=== PATIENT | male | born 1955 | race Caucasian/White ===

== ENCOUNTER 2018-02-19 21:01 | Observation (INO) ==
[2018-02-19] MEDS ORDERED: MethylPREDNISolone Sod Succinate Inj 125 MG/2 ML Vial IV.PUSH ONE (21:11)
[2018-02-19 21:52] LABS: Baso # (Auto) 0.1 th/mm3 (0.0-0.2); Baso % (Auto) 0.5 % (0.0-2.0); Eos # (Auto) 0.4 th/mm3 (0.0-0.4); Eos % (Auto) 2.5 % (0.0-4.0); Hematocrit 36.4 % (39.0-51.0); Hemoglobin 12.3 gm/dL (13.0-17.0); Mean Corpuscular HGB Conc 33.9 % (32.0-36.0); Mean Corpuscular Hemoglobin 30.3 pg (27.0-34.0); Mean Corpuscular Volume 89.5 fL (80.0-100.0); Mono # (Auto) 1.5 th/mm3 (0.0-0.9); Mono % (Auto) 9.8 % (0.0-8.0); Neut # (Auto) 11.7 th/mm3 (1.8-7.7); Neut % (Auto) 74.2 % (16.0-70.0); Platelet Count 280 th/mm3 (150-450); Red Blood Count 4.07 mil/mm3 (4.50-5.90); Red Cell Distribution Width 14.5 % (11.6-17.2); White Blood Count 15.7 th/mm3 (4.0-11.0)
--- NOTE | 2018-02-19 21:52 | XR ---
EXAM DATE: 02/19/2018 9:37 PM EST AGE/SEX: 62 years / Male INDICATIONS: Shortness of breath. CLINICAL DATA: This is the patient's initial encounter. Patient reports that signs and symptoms have been present for 4 - 6 days and indicates a pain score of 0/10. MEDICAL/SURGICAL HISTORY: Chronic obstructive pulmonary disease. Smoker. Umbilical hernia repa ir. COMPARISON: No prior exams available for comparison. FINDINGS: A single AP view of the chest demonstrates the lungs to be symmetrically aerated without evidence of mass, infiltrate or effusion. The cardiomediastinal contours are mildly prominent. Osseous structure s are intact. CONCLUSION: Mild cardiomegaly. Mild basilar atelectasis. Electronically signed by: Alonzo Thayer MD 02/19/2018 9:51 PM EST
--- NOTE | 2018-02-19 21:56 | ED ---
HPI General Chief Complaint: Respiratory Symptoms Stated Complaint: sob Time Seen by Provider: 02/19/18 21:11 Source: patient Mode of arrival: wheelchair Limitations: no limitations History of Present Illness HPI Narrative: 62-year-old male the presents to the ED for evaluation of shortness of breath. Per patient he has had shortness of breath for the past 3 days. He denies any urinary or bowel movement issues. Per patient he has no chest pain. Per patient he has a lot of difficulty just ambulating without feeling short of breath. Per patient he had a sleep test on and ever since has been having symptoms. Per patient has been having cough and congestion as well that has progressively gotten worse. Denies any fevers chills or sweats. States that he has no chest pain but does feel that he is having a hard time taking a deep breath. He has a history of COPD and uses oxygen at home. He also has a history of asthma and per patient he continues to smoke. He chronically uses 2 L of oxygen and he himself increase his oxygen to 3 L today to help with his breathing as he was having a lot of difficulty getting his breath. He denies any history of heart disease but does have a history of anxiety and states that he has been worked up for heart in the past with negative results. Denies any other medical issues at this time. Patient states that the symptoms worsen which is what prompted evaluation. Per patient he cannot lay down flat without having significant shortness of breath. He denies ever been told he has CHF. Related Data Home Medications Medication Instructions Recorded Confirmed albuterol sulfate [Ventolin HFA] 2 puff INHALATION Q6H PRN 02/19/18 02/19/18 fluticasone-salmeterol [Advair 1 puff INHALATION BID 02/19/18 02/19/18 Diskus] hydrochlorothiazide 25 mg PO DAILY 02/19/18 02/19/18 lisinopril 20 mg PO DAILY 02/19/18 02/19/18 pravastatin 20 mg PO DAILY 02/19/18 02/19/18 Allergies Allergy/AdvReac Type Severity Reaction Status Date / Time No Known Allergies Allergy Uncoded 07/01/16 15:30 Review of Systems ROS: all other systems reviewed are negative PMFSH Social History Social History Substance History: No History of Abuse Smoking Status: Current every day smoker Tobacco Type: Cigarettes How Often Do You Have a Drink Containing Alcohol: Monthly or less Recent Travel in [facility] within the Last 8 Weeks: No Recent Out of Country Travel within the Last 8 Weeks: No Immunization History Tetanus Immunization: Unsure Exam Narrative Exam Narrative: GENERAL: Well-appearing but morbidly obese SKIN: Focused skin assessment warm/dry. HEAD: Atraumatic. Normocephalic. EYES: Pupils equal and round. No scleral icterus. No injection or drainage. ENT: No nasal bleeding or discharge. Mucous membranes pink and moist. NECK: Trachea midline. No JVD. CARDIOVASCULAR: Regular rate and rhythm. No murmur appreciated. RESPIRATORY: No accessory muscle use. Mild wheezing heard in the lung leon.. Breath sounds equal bilaterally. GASTROINTESTINAL: Abdomen soft, non-tender, nondistended. Hepatic and splenic margins not palpable. MUSCULOSKELETAL: No obvious deformities. No clubbing. No cyanosis. No edema. Full range of motion of the upper and lower extremities bilaterally. 2+ pulses bilaterally. NEUROLOGICAL: Awake and alert. No obvious cranial nerve deficits. Motor grossly within normal limits. Normal speech. PSYCHIATRIC: Appropriate mood and affect; insight and judgment normal. Course Initial Documented Vital Signs Temperature 99.9 F H 02/19/18 21:09 Pulse Rate 100 H 02/19/18 21:09 Respiratory Rate 26 H 02/19/18 21:09 Pulse Oximetry 94 L 02/19/18 21:09 Last Documented Vital Signs Temperature 99.9 F H 02/19/18 21:09 Pulse Rate 98 H 02/19/18 22:42 Respiratory Rate 22 02/19/18 22:42 Blood Pressure 118/68 02/19/18 22:42 Pulse Oximetry 96 02/19/18 22:42 Medical Decision Making JOSEPH Attestation JOSEPH supervised visit: Yes Attestation: ,I, Dr. Figueroa, have reviewed the advance practice practitioner's documentation and am in agreement, met with the patient face to face, made the diagnosis, and the medical decision making was done by me. The patient was initially evaluated by Ramez Ag. Please see their complete history and physical. *My assessment and Findings: The patient presents with a history of reportedly not feeling well over the last few days. He reports that his symptoms began after he underwent a sleep study and had to wear a CPAP. The patient reports that the next day he developed cough and congestion. The patient is on 2 L nasal cannula O2 continuously related to COPD. The patient reports that he has had a cough that is been increasingly productive of yellow sputum. He denies having any known fevers. During the course of the patient's emergency department visit, the patient's history, examination, and differential diagnosis were reviewed with the patient. The patient was placed on a phototypesetting equipment monitor with oximetry and frequent blood pressure monitoring. The patient had IV access obtained and blood work sent for analysis. The patient was initially provided DuoNeb's x3, Solu-Medrol 100mg IV, Azithromycin 500mg IV. The patient's diagnostic studies were reviewed and remarkable for a chest x-ray that showed basilar infiltrates bilaterally according to the reading radiologistChemistry is remarkable for a CO2 of 32.6, GFR of 66, glucose 115, AST 13, initial set of cardiac enzymes are within normal limits, BNP within normal limits, hemoglobin is 12.3, white count is elevated at 15.7 with a left shift, neutrophil predominance of 74.2, PT PTT within normal limits, d-dimer is 0.25 decreasing the likelihood of pulmonary embolism in this patient. The ABG reveals a pH of 7.41, PCO2 49, bicarb 31, PO2 68, carboxyhemoglobin 2.2 in a patient on 2 L nasal cannula O2. The patient's results were discussed with the patient, including the plan of care. I explained that further testing and/ or monitoring is indicated based on the patient's history, examination, and/ or laboratory findings. Therefore, I recommended admission for additional evaluation. The patient expressed understanding and was agreeable with this plan. The patient was admitted to the hospital in guarded condition and sent to a bed under the care of the resident's service. MDM Narrative Medical decision making narrative: 62-year-old male the presents to the ED for evaluation of shortness of breath. Patient was properly examined and was found to have signs and symptoms consistent with shortness of breath. Labs and imaging ordered. My attending Dr. Figueroa evaluate the patient herself. Patient was given breathing treatments and Solu-Medrol. Labs and imaging showed no sign of acute disease. Patient still somewhat short of breath and symptomatic. This time her condition is for admission for further evaluation and treatment. Case discussed with my attending who agrees with this. Patient agrees with admission. Case discussed with residents agreed admission to their service. Medical Screen Exam Complete: Yes Emergency Medical Condition: Yes Differential Diagnosis Differential Diagnosis: Respiratory distress versus respiratory failure versus ACS versus CHF versus pneumonia versus COPD exacerbation Medical Records Medical records reviewed: Yes I reviewed the patient's medical records. Lab Data Lab results reviewed: Yes I reviewed the patient's lab results. Result diagrams: 02/19/18 21:15 02/19/18 21:15 Lab Results 02/19/18 02/19/18 02/19/18 Range/Units 21:15 21:15 21:15 WBC 15.7 H (4.0-11.0) th/mm3 RBC 4.07 L (4.50-5.90) mil/mm3 Hgb 12.3 L (13.0-17.0) gm/dL Hct 36.4 L (39.0-51.0) % MCV 89.5 (80.0-100.0) fL MCH 30.3 (27.0-34.0) pg MCHC 33.9 (32.0-36.0) % RDW 14.5 (11.6-17.2) % Plt Count 280 (150-450) th/mm3 MPV 8.0 (7.0-11.0) fL Neut % (Auto) 74.2 H (16.0-70.0) % Lymph % (Auto) 13.0 (9.0-44.0) % Mar[place]osa % (Auto) 9.8 H (0.0-8.0) % Eos % (Auto) 2.5 (0.0-4.0) % Baso % (Auto) 0.5 (0.0-2.0) % Neut # (Auto) 11.7 H (1.8-7.7) th/mm3 Lymph # (Auto) 2.0 (1.0-4.8) th/mm3 Mar[place] # (Auto) 1.5 H (0.0-0.9) th/mm3 Eos # (Auto) 0.4 (0.0-0.4) th/mm3 Baso # (Auto) 0.1 (0.0-0.2) th/mm3 WBC Differential . Differential Comment Auto diff final PT 10.1 (9.8-11.6) sec INR 1.0 Ratio APTT 32.1 H (23.4-31.7) sec D-Dimer Quant (PE/DVT) 0.25 (0.00-0.50) mg/L FEU Puncture Site Patient Temperature O2 Saturation (90-100) % ABG pH (7.380-7.420) ABG pCO2 (38-42) mmHg ABG pO2 (61-120) mmHg ABG HCO3 (22-26) mmol/L ABG O2 Content (12.0-20.0) Vol % ABG Base Excess (-2-2) mmol/L ABG Methemoglobin (0-2) % Ash Test Hemoglobin (12.0-16.0) G/DL Carboxyhemoglobin (0-4) % O2 Delivery Device Liter Flow L/M Critical Value Sodium 143 (136-145) meq/L Potassium 3.8 (3.5-5.1) meq/L Chloride 104 (98-107) meq/L Carbon Dioxide 32.6 H (21.0-32.0) meq/L Anion Gap 6 (5-15) meq/L BUN 12 (7-18) mg/dL Creatinine 1.13 (0.60-1.30) mg/dL Estimated GFR 66 L (>89) mL/min Random Glucose 115 H (74-106) mg/dL Calcium 8.3 L (8.5-10.1) mg/dL Magnesium 1.9 (1.5-2.5) mg/dL Total Bilirubin 0.6 (0.2-1.0) mg/dL AST 13 L (15-37) U/L ALT 23 (12-78) U/L Alkaline Phosphatase 66 (45-117) U/L Total Creatine Kinase 89 (39-308) U/L Troponin I Less than 0.02 L (0.02-0.05) ng/mL B-Natriuretic Peptide (0-100) pg/mL Total Protein 7.9 (6.4-8.2) g/dL Albumin 4.0 (3.4-5.0) g/dL 02/19/18 02/19/18 Range/Units 21:15 22:17 WBC (4.0-11.0) th/mm3 RBC (4.50-5.90) mil/mm3 Hgb (13.0-17.0) gm/dL Hct (39.0-51.0) % MCV (80.0-100.0) fL MCH (27.0-34.0) pg MCHC (32.0-36.0) % RDW (11.6-17.2) % Plt Count (150-450) th/mm3 MPV (7.0-11.0) fL Neut % (Auto) (16.0-70.0) % Lymph % (Auto) (9.0-44.0) % [place] % (Auto) (0.0-8.0) % Eos % (Auto) (0.0-4.0) % Baso % (Auto) (0.0-2.0) % Neut # (Auto) (1.8-7.7) th/mm3 Lymph # (Auto) (1.0-4.8) th/mm3 [place] # (Auto) (0.0-0.9) th/mm3 Eos # (Auto) (0.0-0.4) th/mm3 Baso # (Auto) (0.0-0.2) th/mm3 WBC Differential Differential Comment PT (9.8-11.6) sec INR Ratio APTT (23.4-31.7) sec D-Dimer Quant (PE/DVT) (0.00-0.50) mg/L FEU Puncture Site Right radial Patient Temperature 98.6 O2 Saturation 91 (90-100) % ABG pH 7.41 (7.380-7.420) ABG pCO2 49 H (38-42) mmHg ABG pO2 68 (61-120) mmHg ABG HCO3 31 H (22-26) mmol/L ABG O2 Content 14.9 (12.0-20.0) Vol % ABG Base Excess 6.3 H (-2-2) mmol/L ABG Methemoglobin 0.8 (0-2) % Ash Test Present Hemoglobin 11.5 L (12.0-16.0) G/DL Carboxyhemoglobin 2.2 (0-4) % O2 Delivery Device Nasal cannula Liter Flow 2.00 L/M Critical Value No Sodium (136-145) meq/L Potassium (3.5-5.1) meq/L Chloride (98-107) meq/L Carbon Dioxide (21.0-32.0) meq/L Anion Gap (5-15) meq/L BUN (7-18) mg/dL Creatinine (0.60-1.30) mg/dL Estimated GFR (>89) mL/min Random Glucose (74-106) mg/dL Calcium (8.5-10.1) mg/dL Magnesium (1.5-2.5) mg/dL Total Bilirubin (0.2-1.0) mg/dL AST (15-37) U/L ALT (12-78) U/L Alkaline Phosphatase (45-117) U/L Total Creatine Kinase (39-308) U/L Troponin I (0.02-0.05) ng/mL B-Natriuretic Peptide 55 (0-100) pg/mL Total Protein (6.4-8.2) g/dL Albumin (3.4-5.0) g/dL Imaging Data Attestation: I personally reviewed and interpreted this imaging study as follows : Radiologist's impression: Chest X-Ray 02/19/18 21:11 CONCLUSION: Mild cardiomegaly. Mild basilar atelectasis. ECG Data Attestation: I personally reviewed and interpreted this ECG as follows: Interpretation: EKG shows sinus rhythm with no sign of acute ischemia. Read by me and attending. Discharge Plan Discharge Disposition Patient Disposition: 30 Still Patient Discharge Details Diagnosis: Acute exacerbation of chronic obstructive pulmonary disease (COPD) Physicians Team ED Provider: Luz Figueroa ED Midlevel Provider: Ancelmo Jackson Primary Care Provider: Carlos Gomez Attending Provider: Breezy Mathews Status ED Status: Admitted Observation Patient
[2018-02-19 22:15] LABS: Activated Partial Thrombo Time 32.1 sec (23.4-31.7); Prothrombin Time 10.1 sec (9.8-11.6)
[2018-02-19 22:17] LABS: Alanine Aminotransferase 23 U/L (12-78); Anion Gap 6 meq/L (5-15); Aspartate Aminotransferase 13 U/L (15-37); Blood Urea Nitrogen 12 mg/dL (7-18); Calcium 8.3 mg/dL (8.5-10.1); Carbon Dioxide 32.6 meq/L (21.0-32.0); Chloride 104 meq/L (98-107); Glomerular Filtration Rate 66 mL/min (>89); Glucose,Random 115 mg/dL (74-106); Magnesium 1.9 mg/dL (1.5-2.5); Potassium 3.8 meq/L (3.5-5.1); Sodium 143 meq/L (136-145)
[2018-02-19 22:21] LABS: Alkaline Phosphatase 66 U/L (45-117); D-Dimer 0.25 mg/L FEU (0.00-0.50); Total Protein 7.9 g/dL (6.4-8.2)
[2018-02-19 22:24] LABS: Creatine Kinase 89 U/L (39-308)
[2018-02-19 22:26] LABS: ABG Base Excess 6.3 mmol/L (-2-2); ABG PCO2 49 mmHg (38-42); ABG PO2 68 mmHg (61-120)
[2018-02-19] MEDS ORDERED: Azithromycin Inj 500 MG in Sodium Chlor 0.9% Inj 250 ML IV.SIG ONE (22:51)
--- NOTE | 2018-02-19 23:20 | P.HPFP ---
History of Present Illness Primary Care Physician: Carlos Gomez MD <Breezy Mathews - 02/20/18 13:58> Carlos Gomez MD <Anastasiia Villavicencio - 02/19/18 23:20> Chief Complaint: shortness of breath <Anastasiia Villavicencio - 02/20/18 04:21> History of Present Illness: Patient is a 62-year-old old male with significant past medical history of hypertension and COPD presenting to the ED due to worsening shortness of breath. On Tuesday patient began feeling sick with cough and increased sputum production initially greenish brown than greenish yellow. At home patient is on 2 L nasal cannula and O2 saturations ranged from 92-95% even while ambulating. However yesterday he noted O2 saturations to be 87% and only able to walk about 15 feet before becoming short of breath and fatigued. He increase his home oxygen to 3 L however this did not provide any symptomatic relief as he still felt like he "just could not breathe". He took albuterol inhaler and Advair medication with only minimal relief in symptoms. Endorses chills, arms warm, dizziness, low appetite since Tuesday and frontal ROSEN x 2 days slightly improved. Endorses midsternal chest tightness for the past 3 days, nonradiating, stable. Denies nausea, vomiting, fever, confusion, dysuria or abdominal pain. He was brought to the ED by his friend. During exam he was able to speak in full sentences. He normally sleeps on his right side propped up with 2 pillows. Of note patient reports that he had sleep study done yesterday due to diagnosis of sleep apnea for CPAP fitting he was told he quit breathing 27 times in 1 hour however patient does not have a CPAP machine at home yet. Past medical history: COPD Obesity Hyperlipidemia Hypertension Past surgical history: Appendectomy at 6 years of age Umbilical hernia repair in 2013 Shx: smokin cig a day for 45 yrs. alcohol, rarely no illicit drug use Family history: Father colon cancer Mother alcohol abuse <Anastasiia Villavicencio - 02/20/18 05:20> - Diagnosis (1) Acute exacerbation of chronic obstructive pulmonary disease (COPD) (2) Hypertension (3) Nutrition, metabolism, and development symptoms <Breezy Mathews - 02/20/18 13:58> (1) Acute exacerbation of chronic obstructive pulmonary disease (COPD) (2) Hypertension (3) Nutrition, metabolism, and development symptoms <Anastasiia Villavicencio Ilda 02/20/18 04:44> Review of Systems All other systems reviewed negative except as stated in HPI <SaudAnastasiia 02/20/18 05:20> PMFSH - History History Provided By: Patient <Anastasiia Villavicencio Ilda 02/19/18 23:20> - Medical History Medical History: Medical History (Last Updated 02/20/18 @ 00:12 by Caryl Olsen) COPD (chronic obstructive pulmonary disease) [place] (hard of hearing) HTN (hypertension) Sleep apnea Umbilical hernia <Breezy Mathews - 02/20/18 13:58> Medical History (Last Updated 02/20/18 @ 00:12 by Caryl Olsen) COPD (chronic obstructive pulmonary disease) [place] (hard of hearing) HTN (hypertension) Sleep apnea Umbilical hernia <GalloAnastasiia haque 02/20/18 04:21> - Tobacco History Tobacco Use In Past 30 Days: Yes <Anastasiia Villavicencio 02/19/18 23:20> Smoking Status: Current every day smoker <Jose FAnastasiia araiza 02/19/18 23:20> Tobacco Type: Cigarettes <Jose FAnastasiia araiza 02/19/18 23:20> - Alcohol History How Often Do You Have a Drink Containing Alcohol: Monthly or less <GalloAnastasiia haque 02/19/18 23:20> - Substance Use History Substance History: No History of Abuse <Anastasiia Villavicencio 02/19/18 23:20> - Travel History Recent Travel in the [facility] Within the Last 8 Weeks: No <Anastasiia Villavicencio 23:20> Recent Travel Out of the Country Within the Last 8 Weeks: No <Anastasiia Villavicencio 02/19/18 23:20> - Immunization History Tetanus Immunization: Unsure <Anastasiia Villavicencio 02/19/18 23:20> Medications and Allergies Allergies Allergy/AdvReac Type Severity Reaction Status Date / Time No Known Allergies Allergy Uncoded 07/01/16 15:30 <Breezy Mathews - 02/20/18 13:58> Home Medications Medication Instructions Recorded Confirmed Type fluticasone-salmeterol [Advair 1 puff INHALATION BID 02/19/18 02/19/18 History Diskus] hydrochlorothiazide 25 mg PO DAILY 02/19/18 02/19/18 History lisinopril 20 mg PO DAILY 02/19/18 02/19/18 History pravastatin 20 mg PO DAILY 02/19/18 02/19/18 History <Breezy Mathews L - 02/20/18 13:58> Active Medications: Active Medications Azithromycin 500 mg/ Sodium (Chloride) 250 mls @ 250 mls/hr IV.SIG ONCE ONE Stop: 02/19/18 23:50 Last Admin: 02/19/18 23:04 Dose: 250 mls/hr <Anastasiia Villavicencio D - 02/19/18 23:20> Exam Vital signs: Vital Signs 02/19/18 21:09 02/19/18 21:14 02/19/18 21:15 Temperature 99.9 F H Pulse Rate 100 H Respiratory Rate 26 H Blood Pressure 151/85 H Pulse Oximetry 94 L 96 02/19/18 21:30 02/19/18 21:34 02/19/18 21:45 Temperature Pulse Rate 131 H 133 H Respiratory Rate 25 H 23 Blood Pressure Pulse Oximetry 96 02/19/18 22:00 02/19/18 22:42 02/20/18 00:05 Temperature Pulse Rate 135 H 98 H Respiratory Rate 23 22 Blood Pressure 118/68 Pulse Oximetry 96 96 02/20/18 00:13 02/20/18 00:55 02/20/18 02:27 Temperature Pulse Rate 95 H 88 100 H Respiratory Rate 21 18 Blood Pressure 116/67 Pulse Oximetry 97 02/20/18 04:00 02/20/18 04:36 02/20/18 08:00 Temperature 98.3 F 97.7 F Pulse Rate 97 H 95 H 75 Respiratory Rate 18 19 20 Blood Pressure 106/60 113/56 L Pulse Oximetry 95 99 02/20/18 09:00 02/20/18 10:06 Temperature Pulse Rate 91 H Respiratory Rate Blood Pressure Pulse Oximetry 100 Intake & Output 02/19/18 02/20/18 02/20/18 18:59 06:59 18:59 Intake Total 610 / 610 Output Total 600 / 600 Balance Weight 112.037 kg Intake: IV 250 / 250 Azithromycin Inj 500 MG In NS 250 / 250 Inj 250 ML @ 250 mls/hr IV.SIG ONCE ONE Rx#:[id number] Oral 360 / 360 Output: Urine 600 / 600 Other: # Voids 2 Date of Last Bowel Movement 02/18/18 02/18/18 Weight On Admission 112.037 kg <Breezy Mathews - 02/20/18 13:58> Vital Signs 02/19/18 21:09 02/19/18 21:14 02/19/18 21:15 Temperature 99.9 F H Pulse Rate 100 H Respiratory Rate 26 H Blood Pressure 151/85 H Pulse Oximetry 94 L 96 02/19/18 21:30 02/19/18 21:34 02/19/18 22:42 Temperature Pulse Rate 131 H 98 H Respiratory Rate 25 H 22 Blood Pressure 118/68 Pulse Oximetry 96 96 Intake & Output 02/19/18 02/19/18 02/20/18 06:59 18:59 06:59 Weight 114.759 kg <Anastasiia Villavicencio D - 02/19/18 23:20> - Constitutional no acute distress <Anastasiia Villavicencio D - 02/20/18 05:20> - Routine HEENT Exam Head: Present: normocephalic <Anastasiia Villavicencio D - 02/20/18 05:20> Eye: Present: EOMI, PERRL <Anastasiia Villavicencio D - 02/20/18 05:20> ENT: Present: mucous membranes moist, oropharynx clear <Anastasiia Villavicencio D - 03/28 05:20> - Routine Neck Exam Present: supple, full ROM. Absent: JVD, lymphadenopathy <Anastasiia Villavicencio D - 05:20> - Routine Chest/Breast/Axilla Exam Chest wall: Absent: tenderness <Anastasiia Villavicencio D - 02/20/18 05:20> - Routine Respiratory Exam Present: CTA bilaterally. Absent: accessory muscle use <Anastasiia Villavicencio D - 03/28 05:20> - Routine Cardiovascular Exam Present: RRR, S1, S2. Absent: murmur, gallop, rubs <Anastasiia Villavicencio - 05:20> - Routine Abdominal Exam Present: soft, normoactive bowel sounds. Absent: tenderness, rebound, guarding <Anastasiia Villavicencio D - 02/20/18 05:20> - Routine Extremities Exam Present: pulses intact. Absent: edema, calf tenderness <Anastasiia Villavicencio - 03/28 05:20> - Routine Skin Exam Present: intact <Anastasiia Villavicencio D - 02/20/18 05:20> - Routine Neurological Exam Present: oriented X3 <Anastasiia Villavicencio - 02/20/18 05:20> Results - Labs Result diagrams: 02/20/18 03:58 02/20/18 03:58 <Breezy Mathews L - 02/20/18 13:58> Abnormal lab results 02/19/18 02/19/18 02/19/18 Range/Units 21:15 21:15 21:15 WBC 15.7 H (4.0-11.0) th/mm3 RBC 4.07 L (4.50-5.90) mil/mm3 Hgb 12.3 L (13.0-17.0) gm/dL Hct 36.4 L (39.0-51.0) % Neut % (Auto) 74.2 H (16.0-70.0) % Lymph % (Auto) (9.0-44.0) % [place] % (Auto) 9.8 H (0.0-8.0) % Neut # (Auto) 11.7 H (1.8-7.7) th/mm3 Lymph # (Auto) (1.0-4.8) th/mm3 [place] # (Auto) 1.5 H (0.0-0.9) th/mm3 APTT 32.1 H (23.4-31.7) sec ABG pCO2 (38-42) mmHg ABG HCO3 (22-26) mmol/L ABG Base Excess (-2-2) mmol/L Hemoglobin (12.0-16.0) G/DL Carbon Dioxide 32.6 H (21.0-32.0) meq/L Estimated GFR 66 L (>89) mL/min Random Glucose 115 H (74-106) mg/dL Calcium 8.3 L (8.5-10.1) mg/dL AST 13 L (15-37) U/L Troponin I Less than 0.02 L (0.02-0.05) ng/mL Urine Protein (Neg-Trace) mg/dL Urine Ketones (Negative) mg/dL Urine Urobilinogen (Less than 2) mg/dL Urine Mucus (Occasional) /lpf 02/19/18 02/20/18 02/20/18 Range/Units 22:17 02:06 03:58 WBC 12.0 H (4.0-11.0) th/mm3 RBC 3.61 L (4.50-5.90) mil/mm3 Hgb 11.1 L (13.0-17.0) gm/dL Hct 32.9 L (39.0-51.0) % Neut % (Auto) 94.8 H (16.0-70.0) % Lymph % (Auto) 3.5 L (9.0-44.0) % [place] % (Auto) (0.0-8.0) % Neut # (Auto) 11.4 H (1.8-7.7) th/mm3 Lymph # (Auto) 0.4 L (1.0-4.8) th/mm3 [place] # (Auto) (0.0-0.9) th/mm3 APTT (23.4-31.7) sec ABG pCO2 49 H (38-42) mmHg ABG HCO3 31 H (22-26) mmol/L ABG Base Excess 6.3 H (-2-2) mmol/L Hemoglobin 11.5 L (12.0-16.0) G/DL Carbon Dioxide (21.0-32.0) meq/L Estimated GFR (>89) mL/min Random Glucose (74-106) mg/dL Calcium (8.5-10.1) mg/dL AST (15-37) U/L Troponin I (0.02-0.05) ng/mL Urine Protein 30 H (Neg-Trace) mg/dL Urine Ketones Trace H (Negative) mg/dL Urine Urobilinogen 2.0 H (Less than 2) mg/dL Urine Mucus Few H (Occasional) /lpf 02/20/18 Range/Units 03:58 WBC (4.0-11.0) th/mm3 RBC (4.50-5.90) mil/mm3 Hgb (13.0-17.0) gm/dL Hct (39.0-51.0) % Neut % (Auto) (16.0-70.0) % Lymph % (Auto) (9.0-44.0) % [place] % (Auto) (0.0-8.0) % Neut # (Auto) (1.8-7.7) th/mm3 Lymph # (Auto) (1.0-4.8) th/mm3 [place] # (Auto) (0.0-0.9) th/mm3 APTT (23.4-31.7) sec ABG pCO2 (38-42) mmHg ABG HCO3 (22-26) mmol/L ABG Base Excess (-2-2) mmol/L Hemoglobin (12.0-16.0) G/DL Carbon Dioxide (21.0-32.0) meq/L Estimated GFR 58 L (>89) mL/min Random Glucose 298 H D (74-106) mg/dL Calcium 8.1 L (8.5-10.1) mg/dL AST 12 L (15-37) U/L Troponin I Less than 0.02 L (0.02-0.05) ng/mL Urine Protein (Neg-Trace) mg/dL Urine Ketones (Negative) mg/dL Urine Urobilinogen (Less than 2) mg/dL Urine Mucus (Occasional) /lpf Short CBC 02/19/18 02/20/18 Range/Units 21:15 03:58 WBC 15.7 H 12.0 H (4.0-11.0) th/mm3 Hgb 12.3 L 11.1 L (13.0-17.0) gm/dL Hct 36.4 L 32.9 L (39.0-51.0) % Plt Count 280 254 (150-450) th/mm3 BMP 02/19/18 02/20/18 21:15 03:58 Sodium 143 141 Potassium 3.8 3.9 Chloride 104 103 Carbon Dioxide 32.6 H 30.3 BUN 12 13 Creatinine 1.13 1.25 Calcium 8.3 L 8.1 L Cardiac Enzymes 02/19/18 02/20/18 Range/Units 21:15 03:58 Total Creatine Kinase 89 (39-308) U/L Troponin I Less than 0.02 L Less than 0.02 L (0.02-0.05) ng/mL Liver Function 02/19/18 02/20/18 Range/Units 21:15 03:58 Total Bilirubin 0.6 0.6 (0.2-1.0) mg/dL AST 13 L 12 L (15-37) U/L ALT 23 20 (12-78) U/L Alkaline Phosphatase 66 57 (45-117) U/L Albumin 4.0 3.4 D (3.4-5.0) g/dL Urine 02/20/18 Range/Units 02:06 Urine Color Yellow (Yellw/Straw) Urine Clarity Clear (Clear) Urine pH 5.0 (5.0-8.5) Ur Specific [place] 1.024 (1.002-1.035) Urine Protein 30 H (Neg-Trace) mg/dL Urine Glucose (UA) Negative (Negative) mg/dL <YoungBreezy L - 02/20/18 13:58> Abnormal lab results 02/19/18 02/19/18 02/19/18 Range/Units 21:15 21:15 21:15 WBC 15.7 H (4.0-11.0) th/mm3 RBC 4.07 L (4.50-5.90) mil/mm3 Hgb 12.3 L (13.0-17.0) gm/dL Hct 36.4 L (39.0-51.0) % Neut % (Auto) 74.2 H (16.0-70.0) % [place] % (Auto) 9.8 H (0.0-8.0) % Neut # (Auto) 11.7 H (1.8-7.7) th/mm3 [place] # (Auto) 1.5 H (0.0-0.9) th/mm3 APTT 32.1 H (23.4-31.7) sec ABG pCO2 (38-42) mmHg ABG HCO3 (22-26) mmol/L ABG Base Excess (-2-2) mmol/L Hemoglobin (12.0-16.0) G/DL Carbon Dioxide 32.6 H (21.0-32.0) meq/L Estimated GFR 66 L (>89) mL/min Random Glucose 115 H (74-106) mg/dL Calcium 8.3 L (8.5-10.1) mg/dL AST 13 L (15-37) U/L Troponin I Less than 0.02 L (0.02-0.05) ng/mL 02/19/18 Range/Units 22:17 WBC (4.0-11.0) th/mm3 RBC (4.50-5.90) mil/mm3 Hgb (13.0-17.0) gm/dL Hct (39.0-51.0) % Neut % (Auto) (16.0-70.0) % [place] % (Auto) (0.0-8.0) % Neut # (Auto) (1.8-7.7) th/mm3 [place] # (Auto) (0.0-0.9) th/mm3 APTT (23.4-31.7) sec ABG pCO2 49 H (38-42) mmHg ABG HCO3 31 H (22-26) mmol/L ABG Base Excess 6.3 H (-2-2) mmol/L Hemoglobin 11.5 L (12.0-16.0) G/DL Carbon Dioxide (21.0-32.0) meq/L Estimated GFR (>89) mL/min Random Glucose (74-106) mg/dL Calcium (8.5-10.1) mg/dL AST (15-37) U/L Troponin I (0.02-0.05) ng/mL Short CBC 02/19/18 Range/Units 21:15 WBC 15.7 H (4.0-11.0) th/mm3 Hgb 12.3 L (13.0-17.0) gm/dL Hct 36.4 L (39.0-51.0) % Plt Count 280 (150-450) th/mm3 BMP 02/19/18 21:15 Sodium 143 Potassium 3.8 Chloride 104 Carbon Dioxide 32.6 H BUN 12 Creatinine 1.13 Calcium 8.3 L Cardiac Enzymes 02/19/18 Range/Units 21:15 Total Creatine Kinase 89 (39-308) U/L Troponin I Less than 0.02 L (0.02-0.05) ng/mL Liver Function 02/19/18 Range/Units 21:15 Total Bilirubin 0.6 (0.2-1.0) mg/dL AST 13 L (15-37) U/L ALT 23 (12-78) U/L Alkaline Phosphatase 66 (45-117) U/L Albumin 4.0 (3.4-5.0) g/dL <Anastasiia Villavicencio - 02/19/18 23:20> - Imaging Impressions Chest X-Ray 02/19/18 21:11 CONCLUSION: Mild cardiomegaly. Mild basilar atelectasis. <Breezy Mathews - 02/20/18 13:58> Impressions Chest X-Ray 02/19/18 21:11 CONCLUSION: Mild cardiomegaly. Mild basilar atelectasis. <Anastasiia Villavicencio - 02/19/18 23:20> Caprini VTE Risk Assessment Caprini VTE Risk Assessment: Moderate/High Risk (score >= 2) <Anastasiia Villavicencio - 02/20/18 05:20> Caprini Risk Assessment Model: Point Value = 1 Point Value = 2 Point Value = 3 Point Value = 5 Age 41-60 Minor surgery BMI > 25 kg/m2 Swollen legs Varicose veins or History of unexplained or recurrent spontaneous Oral contraceptives or hormone replacement Sepsis (< 1 month) Serious lung disease, including pneumonia (< 1 month) Abnormal pulmonary function Acute myocardial infarction Congestive heart failure (< 1 month) History of inflammatory bowel disease Medical patient at bed rest Age 61-74 Arthroscopic surgery Major open surgery (> 45 min) Laparoscopic surgery (> 45 min) Malignancy Confined to bed (> 72 hours) Immobilizing plaster cast Central venous access Age >= 75 History of VTE Family history of VTE Factor V Leiden Prothrombin [id number] Lupus anticoagulant Anticardiolipin antibodies Elevated serum homocysteine Heparin-induced thrombocytopenia Other congenital or acquired thrombophilia Stroke (< 1 month) Elective arthroplasty Hip, pelvis, or leg fracture Acute spinal cord injury (< 1 month) <Breezy Mathews - 02/20/18 13:58> Point Value = 1 Point Value = 2 Point Value = 3 Point Value = 5 Age 41-60 Minor surgery BMI > 25 kg/m2 Swollen legs Varicose veins or History of unexplained or recurrent spontaneous Oral contraceptives or hormone replacement Sepsis (< 1 month) Serious lung disease, including pneumonia (< 1 month) Abnormal pulmonary function Acute myocardial infarction Congestive heart failure (< 1 month) History of inflammatory bowel disease Medical patient at bed rest Age 61-74 Arthroscopic surgery Major open surgery (> 45 min) Laparoscopic surgery (> 45 min) Malignancy Confined to bed (> 72 hours) Immobilizing plaster cast Central venous access Age >= 75 History of VTE Family history of VTE Factor V Leiden Prothrombin [id number] Lupus anticoagulant Anticardiolipin antibodies Elevated serum homocysteine Heparin-induced thrombocytopenia Other congenital or acquired thrombophilia Stroke (< 1 month) Elective arthroplasty Hip, pelvis, or leg fracture Acute spinal cord injury (< 1 month) <Anastasiia Villavicencio D - 02/19/18 23:20> Prophylaxis Regimen: Total Risk Factor Score Risk Level Prophylaxis Regimen 0-1 Low Early ambulation 2 Moderate Order ONE of the following: *Sequential Compression Device (SCD) *Heparin 5000 units SQ BID 3-4 Higher Order ONE of the following medications: *Heparin 5000 units SQ TID *Enoxaparin/Lovenox 40 mg SQ daily (WT < 150 kg, CrCl > 30 mL/min) *Enoxaparin/Lovenox 30 mg SQ daily (WT < 150 kg, CrCl > 10-29 mL/min) *Enoxaparin/Lovenox 30 mg SQ BID (WT < 150 kg, CrCl > 30 mL/min) AND/OR *Sequential Compression Device (SCD) 5 or more Highest Order ONE of the following medications: *Heparin 5000 units SQ TID (Preferred with Epidurals) *Enoxaparin/Lovenox 40 mg SQ daily (WT < 150 kg, CrCl > 30 mL/min) *Enoxaparin/Lovenox 30 mg SQ daily (WT < 150 kg, CrCl > 10-29 mL/min) *Enoxaparin/Lovenox 30 mg SQ BID (WT < 150 kg, CrCl > 30 mL/min) AND *Sequential Compression Device (SCD) <Breezy Mathews - 02/20/18 13:58> Total Risk Factor Score Risk Level Prophylaxis Regimen 0-1 Low Early ambulation 2 Moderate Order ONE of the following: *Sequential Compression Device (SCD) *Heparin 5000 units SQ BID 3-4 Higher Order ONE of the following medications: *Heparin 5000 units SQ TID *Enoxaparin/Lovenox 40 mg SQ daily (WT < 150 kg, CrCl > 30 mL/min) *Enoxaparin/Lovenox 30 mg SQ daily (WT < 150 kg, CrCl > 10-29 mL/min) *Enoxaparin/Lovenox 30 mg SQ BID (WT < 150 kg, CrCl > 30 mL/min) AND/OR *Sequential Compression Device (SCD) 5 or more Highest Order ONE of the following medications: *Heparin 5000 units SQ TID (Preferred with Epidurals) *Enoxaparin/Lovenox 40 mg SQ daily (WT < 150 kg, CrCl > 30 mL/min) *Enoxaparin/Lovenox 30 mg SQ daily (WT < 150 kg, CrCl > 10-29 mL/min) *Enoxaparin/Lovenox 30 mg SQ BID (WT < 150 kg, CrCl > 30 mL/min) AND *Sequential Compression Device (SCD) <Anastasiia Villavicencio D - 02/19/18 23:20> Assessment and Plan - Assessment (1) Acute exacerbation of chronic obstructive pulmonary disease (COPD) Code(s): J44.1 - Chronic obstructive pulmonary disease with (acute) exacerbation Status: Acute (2) Hypertension Code(s): I10 - Essential (primary) hypertension Status: Acute (3) Nutrition, metabolism, and development symptoms Code(s): R63.8 - Other symptoms and signs concerning food and fluid intake Status: Acute <Breezy Mathews - 02/20/18 13:58> (1) Acute exacerbation of chronic obstructive pulmonary disease (COPD) Code(s): J44.1 - Chronic obstructive pulmonary disease with (acute) exacerbation Status: Acute Plan: Patient is a 62-year-old old male with significant past medical history of hypertension and COPD presenting to the ED due to worsening shortness of breath and malaise for the past couple of days. Patient uses home oxygen at 2 L on nasal cannula however had to increase oxygenation to 3 L without any significant improvement in shortness of breath. Patient also with symptoms of worsening cough and increased sputum production. In the ED patient was found to be afebrile, tachycardic with O2 saturation 96% on 2 L nasal cannula and slightly hypertensive 150s/80s. Patient had a leukocytosis (white blood cell count 15.7) ABG: PH of 7.1, PCO2 of 49, PO2 of 68 and bicarb of 31 Chest x-ray showing mild cardiomegaly and basilar atelectasis In the ED patient receive methylprednisolone IV 125 g x1, DuoNeb x3 and azithromycin 500 IV x1. Continue to monitor vital signs Continue with DuoNeb every 4 hours and albuterol nebulizer as needed every 2 hours Continue with azithromycin 250 mg IV daily Prednisone 40 mg daily for minimum of 5 days Zofran for nausea vomiting Tessalon Perles for cough Titrate oxygen to keep saturations at max of 92% Follow-up repeat a.m. labs Sputum culture Blood culture (2) Hypertension Code(s): I10 - Essential (primary) hypertension Status: Acute Plan: Continue to monitor vital signs Resume home medications (3) Nutrition, metabolism, and development symptoms Code(s): R63.8 - Other symptoms and signs concerning food and fluid intake Status: Acute Plan: Fluids: Not indicated at this time, patient tolerating p.o. Electrolytes: Replete as needed Diet: Regular adult diet DVT prophylaxis: Heparin SQ every 8 hours <Anastasiia Villavicencio - 02/20/18 04:44> - Attending Attestation The exam, history, and the medical decision-making described in the above note were completed with the assistance of the resident physician. I reviewed and agree with the findings presented. I attest that I had a [id number] encounter with the patient on the same day, and personally performed and documented my assessment and findings in the medical record. Please see my documentation for 02/20/18. <Breezy Mathews - 02/20/18 13:58>
[2018-02-19] MEDS ORDERED: Bisacodyl 10 MG Supp RECTAL PRN (23:42)
[2018-02-19] MEDS ORDERED: Acetaminophen 325 MG Tablet PO PRN (23:42)
[2018-02-20] MEDS ORDERED: Influenza (Quadrivalent) Vaccine 0.5 ML Syringe IM ONE (00:03)
[2018-02-20] MEDS ORDERED: Benzonatate 100 MG Capsule PO PRN (00:04)
[2018-02-20] MEDS: Heparin - SQ 10,000 UNITS/ML Vial SQ SCH ×2 (01:56→08:36)
[2018-02-20 03:36] LABS: Bilirubin,Urine Negative (Negative); Clarity,Urine Clear (Clear); Color,Urine Yellow (Yellw/Straw); Glucose,Urine (UA) Negative (Negative); Hyaline Casts,Urine 1 /lpf (0-3); Leukocyte Esterase,Urine Negative (Negative); Mucus,Urine Few /lpf (Occasional); Nitrite,Urine Negative (Negative); Specific Gravity,Urine 1.024 (1.002-1.035); Squamous Epithelial Cell,Urine <1 /hpf (0-5)
[2018-02-20 04:37] LABS: Baso % (Auto) 0.3 % (0.0-2.0); Eos % (Auto) 0.1 % (0.0-4.0); Hematocrit 32.9 % (39.0-51.0); Hemoglobin 11.1 gm/dL (13.0-17.0); Lymph # (Auto) 0.4 th/mm3 (1.0-4.8); Lymph % (Auto) 3.5 % (9.0-44.0); Mean Corpuscular HGB Conc 33.6 % (32.0-36.0); Mean Corpuscular Hemoglobin 30.7 pg (27.0-34.0); Mean Corpuscular Volume 91.2 fL (80.0-100.0); Mono # (Auto) 0.2 th/mm3 (0.0-0.9); Mono % (Auto) 1.3 % (0.0-8.0); Neut # (Auto) 11.4 th/mm3 (1.8-7.7); Neut % (Auto) 94.8 % (16.0-70.0); Platelet Count 254 th/mm3 (150-450); Red Blood Count 3.61 mil/mm3 (4.50-5.90); Red Cell Distribution Width 14.3 % (11.6-17.2)
[2018-02-20 05:08] LABS: Alanine Aminotransferase 20 U/L (12-78); Albumin 3.4 g/dL (3.4-5.0); Alkaline Phosphatase 57 U/L (45-117); Anion Gap 8 meq/L (5-15); Aspartate Aminotransferase 12 U/L (15-37); Blood Urea Nitrogen 13 mg/dL (7-18); Calcium 8.1 mg/dL (8.5-10.1); Carbon Dioxide 30.3 meq/L (21.0-32.0); Chloride 103 meq/L (98-107); Glomerular Filtration Rate 58 mL/min (>89); Glucose,Random 298 mg/dL (74-106); Potassium 3.9 meq/L (3.5-5.1); Sodium 141 meq/L (136-145); Total Protein 6.9 g/dL (6.4-8.2)
[2018-02-20 08:16] VITALS: BP 113/56; PULSE 91; RESP 20; TEMP 97.7
[2018-02-20] MEDS ORDERED: Senna/Docusate Sodium 8.6/50 MG Tablet PO SCH (09:00)
[2018-02-20 10:06] VITALS: O2SAT 100
[2018-02-20] MEDS ORDERED: predniSONE 20 MG Tablet PO SCH (11:00)
[2018-02-20] MEDS ORDERED: Azithromycin Inj 250 MG in Sodium Chlor 0.9% Inj 250 ML IV.SIG SCH (12:00)
--- NOTE | 2018-02-20 12:05 | ECG ---
Date Performed: 02/20/2018 Time Performed: 05:11:17 PTAGE: 62 years EKG: Sinus rhythm WITH OCCASIONAL SUPRAVENTRICULAR PREMATURE COMPLEXES BORDERLINE ECG Since the PREVIOUS TRACING , no significant change noted PREVIOUS TRACING DOCTOR: Jim Salazar Interpretating Date/Time 02/20/2018 12:02:15
--- NOTE | 2018-02-20 12:18 | ECG ---
Date Performed: 02/19/2018 Time Performed: 21:13:08 PTAGE: 62 years EKG: SINUS TACHYCARDIA WITH FREQUENT SUPRAVENTRICULAR PREMATURE COMPLEXES POSSIBLE RIGHT VENTRIC ULAR CONDUCTION DELAY ABNORMAL RHYTHM ECG NO PREVIOUS TRACING DOCTOR: Jim Salazar Interpretating Date/Time 02/20/2018 12:12:01
--- NOTE | 2018-02-20 13:25 | P.PNFP ---
Subjective Interval history: Patient sitting up in bed. He continues to have productive cough. However, he reports he is completely back to baseline. He reports his breathing is back to baseline. No significant shortness of breath. Slept well overnight. No fevers/ chills. Reports significant improvement with breathing treatments. Currently on 3L via nasal cannula (2 to 3L at home). We discussed smoking at length. He's tried Chantix but it made him have "crazy dreams", and he tried nicotine/ patches and gum before. No chest pain, no abdominal pain, no nausea/vomiting, no calf swelling or edema. Results - Labs Result diagrams: 02/20/18 03:58 02/20/18 03:58 Abnormal lab results 02/19/18 02/19/18 02/19/18 Range/Units 21:15 21:15 21:15 WBC 15.7 H (4.0-11.0) th/mm3 RBC 4.07 L (4.50-5.90) mil/mm3 Hgb 12.3 L (13.0-17.0) gm/dL Hct 36.4 L (39.0-51.0) % Neut % (Auto) 74.2 H (16.0-70.0) % Lymph % (Auto) (9.0-44.0) % [place] % (Auto) 9.8 H (0.0-8.0) % Neut # (Auto) 11.7 H (1.8-7.7) th/mm3 Lymph # (Auto) (1.0-4.8) th/mm3 [place] # (Auto) 1.5 H (0.0-0.9) th/mm3 APTT 32.1 H (23.4-31.7) sec ABG pCO2 (38-42) mmHg ABG HCO3 (22-26) mmol/L ABG Base Excess (-2-2) mmol/L Hemoglobin (12.0-16.0) G/DL Carbon Dioxide 32.6 H (21.0-32.0) meq/L Estimated GFR 66 L (>89) mL/min Random Glucose 115 H (74-106) mg/dL Calcium 8.3 L (8.5-10.1) mg/dL AST 13 L (15-37) U/L Troponin I Less than 0.02 L (0.02-0.05) ng/mL Urine Protein (Neg-Trace) mg/dL Urine Ketones (Negative) mg/dL Urine Urobilinogen (Less than 2) mg/dL Urine Mucus (Occasional) /lpf 02/19/18 02/20/18 02/20/18 Range/Units 22:17 02:06 03:58 WBC 12.0 H (4.0-11.0) th/mm3 RBC 3.61 L (4.50-5.90) mil/mm3 Hgb 11.1 L (13.0-17.0) gm/dL Hct 32.9 L (39.0-51.0) % Neut % (Auto) 94.8 H (16.0-70.0) % Lymph % (Auto) 3.5 L (9.0-44.0) % [place] % (Auto) (0.0-8.0) % Neut # (Auto) 11.4 H (1.8-7.7) th/mm3 Lymph # (Auto) 0.4 L (1.0-4.8) th/mm3 [place] # (Auto) (0.0-0.9) th/mm3 APTT (23.4-31.7) sec ABG pCO2 49 H (38-42) mmHg ABG HCO3 31 H (22-26) mmol/L ABG Base Excess 6.3 H (-2-2) mmol/L Hemoglobin 11.5 L (12.0-16.0) G/DL Carbon Dioxide (21.0-32.0) meq/L Estimated GFR (>89) mL/min Random Glucose (74-106) mg/dL Calcium (8.5-10.1) mg/dL AST (15-37) U/L Troponin I (0.02-0.05) ng/mL Urine Protein 30 H (Neg-Trace) mg/dL Urine Ketones Trace H (Negative) mg/dL Urine Urobilinogen 2.0 H (Less than 2) mg/dL Urine Mucus Few H (Occasional) /lpf 02/20/18 Range/Units 03:58 WBC (4.0-11.0) th/mm3 RBC (4.50-5.90) mil/mm3 Hgb (13.0-17.0) gm/dL Hct (39.0-51.0) % Neut % (Auto) (16.0-70.0) % Lymph % (Auto) (9.0-44.0) % [place] % (Auto) (0.0-8.0) % Neut # (Auto) (1.8-7.7) th/mm3 Lymph # (Auto) (1.0-4.8) th/mm3 [place] # (Auto) (0.0-0.9) th/mm3 APTT (23.4-31.7) sec ABG pCO2 (38-42) mmHg ABG HCO3 (22-26) mmol/L ABG Base Excess (-2-2) mmol/L Hemoglobin (12.0-16.0) G/DL Carbon Dioxide (21.0-32.0) meq/L Estimated GFR 58 L (>89) mL/min Random Glucose 298 H D (74-106) mg/dL Calcium 8.1 L (8.5-10.1) mg/dL AST 12 L (15-37) U/L Troponin I Less than 0.02 L (0.02-0.05) ng/mL Urine Protein (Neg-Trace) mg/dL Urine Ketones (Negative) mg/dL Urine Urobilinogen (Less than 2) mg/dL Urine Mucus (Occasional) /lpf Short CBC 02/19/18 02/20/18 Range/Units 21:15 03:58 WBC 15.7 H 12.0 H (4.0-11.0) th/mm3 Hgb 12.3 L 11.1 L (13.0-17.0) gm/dL Hct 36.4 L 32.9 L (39.0-51.0) % Plt Count 280 254 (150-450) th/mm3 BMP 02/19/18 02/20/18 21:15 03:58 Sodium 143 141 Potassium 3.8 3.9 Chloride 104 103 Carbon Dioxide 32.6 H 30.3 BUN 12 13 Creatinine 1.13 1.25 Calcium 8.3 L 8.1 L Cardiac Enzymes 02/19/18 02/20/18 Range/Units 21:15 03:58 Total Creatine Kinase 89 (39-308) U/L Troponin I Less than 0.02 L Less than 0.02 L (0.02-0.05) ng/mL Liver Function 02/19/18 02/20/18 Range/Units 21:15 03:58 Total Bilirubin 0.6 0.6 (0.2-1.0) mg/dL AST 13 L 12 L (15-37) U/L ALT 23 20 (12-78) U/L Alkaline Phosphatase 66 57 (45-117) U/L Albumin 4.0 3.4 D (3.4-5.0) g/dL Urine 02/20/18 Range/Units 02:06 Urine Color Yellow (Yellw/Straw) Urine Clarity Clear (Clear) Urine pH 5.0 (5.0-8.5) Ur Specific [place] 1.024 (1.002-1.035) Urine Protein 30 H (Neg-Trace) mg/dL Urine Glucose (UA) Negative (Negative) mg/dL - Imaging Impressions Chest X-Ray 02/19/18 21:11 CONCLUSION: Mild cardiomegaly. Mild basilar atelectasis. Physical Exam Vital signs: Vital Signs 02/19/18 21:09 02/19/18 21:14 02/19/18 21:15 Temperature 99.9 F H Pulse Rate 100 H Respiratory Rate 26 H Blood Pressure 151/85 H Pulse Oximetry 94 L 96 02/19/18 21:30 02/19/18 21:34 02/19/18 21:45 Temperature Pulse Rate 131 H 133 H Respiratory Rate 25 H 23 Blood Pressure Pulse Oximetry 96 02/19/18 22:00 02/19/18 22:42 02/20/18 00:05 Temperature Pulse Rate 135 H 98 H Respiratory Rate 23 22 Blood Pressure 118/68 Pulse Oximetry 96 96 02/20/18 00:13 02/20/18 00:55 02/20/18 02:27 Temperature Pulse Rate 95 H 88 100 H Respiratory Rate 21 18 Blood Pressure 116/67 Pulse Oximetry 97 02/20/18 04:00 02/20/18 04:36 02/20/18 08:00 Temperature 98.3 F 97.7 F Pulse Rate 97 H 95 H 75 Respiratory Rate 18 19 20 Blood Pressure 106/60 113/56 L Pulse Oximetry 95 99 02/20/18 09:00 02/20/18 10:06 Temperature Pulse Rate 91 H Respiratory Rate Blood Pressure Pulse Oximetry 100 Intake & Output 02/19/18 02/20/18 02/20/18 18:59 06:59 18:59 Intake Total 610 / 610 Output Total 600 / 600 Balance Weight 112.037 kg Intake: IV 250 / 250 Azithromycin Inj 500 MG In NS 250 / 250 Inj 250 ML @ 250 mls/hr IV.SIG ONCE ONE Rx#:[id number] Oral 360 / 360 Output: Urine 600 / 600 Other: # Voids 2 Date of Last Bowel Movement 02/18/18 02/18/18 Weight On Admission 112.037 kg Narrative: General: Sitting up in bed, wet sounding cough, no respiratory distress Skin: No rashes or lesions HEENT: Normocephalic, no nasal discharge Neck: Supple, no lymphadenopathy CV: RRR, no murmurs, rubs, or gallops, regular pulses Lungs: CTAB, mildly increased expiratory phase, no respiratory distress. We walked down the [place] on 2L nasal cannula and he had no desaturations. Abdomen: Soft, nontender, nondistended, normal bowel sounds Ext: no edema, no difficulty walking Neuro: Awake, alert Psych: Normal insight, appropriate affect Assessment and Plan - Assessment (1) Acute exacerbation of chronic obstructive pulmonary disease (COPD) Code(s): J44.1 - Chronic obstructive pulmonary disease with (acute) exacerbation Status: Acute Plan: Patient presenting with COPD exacerbation, respiratory acidosis. Chest x-ray showing no acute process, mild cardiomegaly and basilar atelectasis. Prolonged expirations on exam. Able to walk down [place] without desaturation. Uses 2 to 3L oxygen at home. - Continue prednisone 50 mg for a total 5 day course - Continue azithromycin for total 5 day course. - Continue breathing treatments at home, taper as tolerated - Continue Advair at home for maintenance inhaler - Continue O2 therapy at home - Follow up with PCP and chart reader (2) Hypertension Code(s): I10 - Essential (primary) hypertension Status: Acute Plan: Continue to monitor vital signs Resume home medications (3) Nutrition, metabolism, and development symptoms Code(s): R63.8 - Other symptoms and signs concerning food and fluid intake Status: Acute Plan: Fluids: by mouth Electrolytes: normal Diet: Regular adult diet DVT prophylaxis: Heparin SQ every 8 hours - Assessment and Plan Discussed Condition With: Dr. Villavicencio, Dr. Kilpatrick, Dr. Rawls, Dr. Figueroa Discharge Planning: Discussed discharge plan at length with patient - Azithromycin 5 day course - Prednisone 5 day course - Albuterol breathing treatments, taper as tolerated - Continue Advair - Counseling on smoking cessation - Continue O2 therapy at home - Follow up with PCP and chart reader
== END 2018-02-20 11:14 | disposition home or self-care (01) ==
LOC: NEDA 21:01 → NEPE 21:01 → NEPFCDU 02-20 01:12
PROVIDERS: ADMIT Family Medicine; ATTEND Family Medicine
DX: Z23 Encounter for immunization; I11.9 Hypertensive heart disease without heart failure; I51.7 Cardiomegaly; Z99.81 Dependence on supplemental oxygen; R05 Cough; R09.89 Other specified symptoms and signs involving the circulatory and respiratory systems; B96.3 Hemophilus influenzae [H. influenzae] as the cause of diseases classified elsewhere; J44.1 Chronic obstructive pulmonary disease with (acute) exacerbation; J98.11 Atelectasis; R06.2 Wheezing; R06.02 Shortness of breath; F17.210 Nicotine dependence, cigarettes, uncomplicated; Z79.899 Other long term (current) drug therapy

== ENCOUNTER 2018-02-21 21:26 | Inpatient (IN) ==
[2018-02-21] MEDS ORDERED: MethylPREDNISolone Sod Succinate Inj 125 MG/2 ML Vial IV.PUSH ONE (21:45)
--- NOTE | 2018-02-21 22:10 | XR ---
EXAM DATE: 02/21/2018 10:06 PM EST AGE/SEX: 62 years / Male INDICATIONS: Short of breath. CLINICAL DATA: This is the patient's initial encounter. Patient reports that signs and symptoms have been present for 3 days and indicates a pain score of 0/10. MEDICAL/SURGICAL HISTORY: . Chronic obstructive pulmonary disease. Smoker. Umbilical hernia rep air. . COMPARISON: [facility], CHEST 1V SINGLE AP, 02/19/2018. . FINDINGS: A single AP view of the chest demonstrates the lungs to be symmetrically aerated without evidence of mass, infiltrate or effusion. The cardiomediastinal contours are unremarkable. Osseous structures a re intact. CONCLUSION: The lungs are clear. Electronically signed by: Layton Petersen MD 02/21/2018 10:08 PM EST
--- NOTE | 2018-02-21 22:20 | ED ---
HPI General Chief Complaint: Shortness of Breath/Dyspnea Stated Complaint: sob Time Seen by Provider: 02/21/18 21:45 Source: patient Mode of arrival: ambulatory Limitations: no limitations History of Present Illness Patient is a 62-year-old male presenting to [facility] for evaluation of shortness of breath. Patient states he started feeling this way at 10 AM this morning. He states he feels as if he cannot catch his breath. Patient has a history of COPD, he states he was just discharged from the hospital yesterday. He feels his symptoms are related to a sleep apnea test that he had on Tuesday. She reports increased mucus production, he states his sputum is yellow, green and brown. He denies any fever, chills, nausea, vomiting, headache, dizziness. He further denies any chest pain. Patient states that he does continue to smoke but has cut back and only had 3 cigarettes today. He reports compliance with his inhalers. He used a friends nebulizer machine earlier this afternoon which helped his symptoms. Symptom onset was sudden, symptoms are moderate nature. No complete alleviating factors. Symptoms are likely exacerbated to smoking and secondhand smoke exposure. Patient does wear oxygen at home continuously. MD Complaint: Reports shortness of breath and cough Onset (ago): hour(s) Severity: moderate Consistency/Duration: constant Relieving factors: bronchodilators Exacerbating factors: exertion, movement and talking Known history of: Reports COPD Associated symptoms: Reports cough, sputum production and orthopnea Treatment prior to arrival: Reports bronchodilator Related Data Home oxygen amount: 2 liters Home Medications Medication Instructions Recorded Confirmed fluticasone-salmeterol [Advair 1 puff INHALATION BID 02/19/18 02/21/18 Diskus] hydrochlorothiazide 25 mg PO DAILY 02/19/18 02/21/18 lisinopril 20 mg PO DAILY 02/19/18 02/21/18 pravastatin 20 mg PO DAILY 02/19/18 02/21/18 Previous Rx's Medication Instructions Recorded albuterol sulfate [Ventolin HFA] 2 puff INHALATION Q6H PRN #1 unit 02/20/18 azithromycin [Zithromax Z-Alek] 250 mg PO DAILY 4 Days #4 tab 02/20/18 prednisone 50 mg PO DAILY 4 Days #4 tab 02/20/18 Allergies Allergy/AdvReac Type Severity Reaction Status Date / Time No Known Allergies Allergy Verified 02/21/18 21:39 Review of Systems ROS: all other systems reviewed are negative [facility] Medical History Medical History COPD (chronic obstructive pulmonary disease) (Acute) [place] (hard of hearing) (Acute) HTN (hypertension) (Acute) Sleep apnea (Acute) Umbilical hernia (Acute) Social History Social History Substance History: No History of Abuse Second Hand Smoke Exposure: No Smoking Status: Light tobacco smoker Tobacco Type: Cigarettes How Often Do You Have a Drink Containing Alcohol: Monthly or less Immunization History Tetanus Immunization: >5 Years Exam Narrative Exam Narrative: GENERAL: Overweight, well-developed, alert male. Appears uncomfortable, in no acute distress. SKIN: Focused skin assessment warm/dry. HEAD: Atraumatic. Normocephalic. EYES: Pupils equal and round. No scleral icterus. No injection or drainage. ENT: No nasal bleeding or discharge. Mucous membranes pink and moist. NECK: Trachea midline. No JVD. CARDIOVASCULAR: Tachycardic. No murmur appreciated. RESPIRATORY: Tachypneic, diaphragmatic breathing, lung sounds diminished throughout. GASTROINTESTINAL: Abdomen soft, non-tender, nondistended. Hepatic and splenic margins not palpable. MUSCULOSKELETAL: No obvious deformities. No clubbing. No cyanosis. 1+ edema to bilateral lower extremities. NEUROLOGICAL: Awake and alert. No obvious cranial nerve deficits. Motor grossly within normal limits. Normal speech. PSYCHIATRIC: Appropriate mood and affect; insight and judgment normal. Course Initial Documented Vital Signs Temperature 98.9 F 02/21/18 21:29 Pulse Rate 99 H 02/21/18 21:29 Respiratory Rate 32 H 02/21/18 21:29 Blood Pressure 123/85 02/21/18 21:29 Pulse Oximetry 91 L 02/21/18 21:29 Last Documented Vital Signs Temperature 98.9 F 02/21/18 21:29 Pulse Rate 105 H 02/21/18 21:58 Respiratory Rate 20 02/21/18 21:58 Blood Pressure 127/80 02/21/18 21:40 Pulse Oximetry 97 02/21/18 22:22 Medical Decision Making [facility] Narrative Medical decision making narrative: Patient is a 62-year-old male presenting with shortness of breath secondary to COPD. Patient tachypneic and tachycardic on arrival. Labs and imaging ordered and pending. Patient will be given budesonide and DuoNeb's as well as Solu-Medrol. Initial EKG which was reviewed by my attending physician shows sinus tachycardia with PVCs. Rate is 112. Chest x-ray shows no acute disease. Patient was reassessed, he continued to have increased work of breathing. Patient continued to be tachycardic and was tripoding. He will be placed on BiPAP, he is agreeable. Patient was reassessed after patient was placed on BiPAP. He reports improvement, he states he feels it is easier to take a breath. CBC with a WBC of 14.6, this is elevated when compared to prior. Patient will be started on azithromycin. Patient will be admitted for COPD exacerbation. Medical Screen Exam Complete: Yes Emergency Medical Condition: Yes Differential Diagnosis Differential Diagnosis: COPD exacerbation versus bronchitis versus pneumonia versus metabolic abnormality versus CHF versus other Medical Records Medical records reviewed: Yes I reviewed the patient's medical records. Lab Data Lab results reviewed: Yes I reviewed the patient's lab results. Result diagrams: 02/21/18 21:45 02/21/18 21:45 Lab Results 02/21/18 02/21/18 Range/Units 21:45 21:45 WBC 14.6 H (4.0-11.0) th/mm3 RBC 4.16 L (4.50-5.90) mil/mm3 Hgb 12.5 L (13.0-17.0) gm/dL Hct 37.9 L (39.0-51.0) % MCV 91.0 (80.0-100.0) fL MCH 30.1 (27.0-34.0) pg MCHC 33.1 (32.0-36.0) % RDW 14.5 (11.6-17.2) % Plt Count 363 D (150-450) th/mm3 MPV 8.5 (7.0-11.0) fL Neut % (Auto) 67.1 (16.0-70.0) % Lymph % (Auto) 20.5 (9.0-44.0) % [place] % (Auto) 10.4 H (0.0-8.0) % Eos % (Auto) 1.2 (0.0-4.0) % Baso % (Auto) 0.8 (0.0-2.0) % Neut # (Auto) 9.8 H (1.8-7.7) th/mm3 Lymph # (Auto) 3.0 (1.0-4.8) th/mm3 [place] # (Auto) 1.5 H (0.0-0.9) th/mm3 Eos # (Auto) 0.2 (0.0-0.4) th/mm3 Baso # (Auto) 0.1 (0.0-0.2) th/mm3 WBC Differential . Differential Comment Auto diff final Sodium 146 H (136-145) meq/L Potassium 3.7 (3.5-5.1) meq/L Chloride 105 (98-107) meq/L Carbon Dioxide 33.0 H (21.0-32.0) meq/L Anion Gap 8 (5-15) meq/L BUN 27 H (7-18) mg/dL Creatinine 1.24 (0.60-1.30) mg/dL Estimated GFR 59 L (>89) mL/min Random Glucose 98 D (74-106) mg/dL Calcium 9.1 D (8.5-10.1) mg/dL Imaging Data Radiologist's impression: Chest X-Ray 02/21/18 21:45 CONCLUSION: The lungs are clear. Discharge Plan Physicians Team ED Provider: Luz Figueroa ED Midlevel Provider: Dara Paris Primary Care Provider: Carlos Gomez Rxs /Orders / Referrals /Forms Prescriptions: No Action lisinopril 20 mg Tablet 20 mg PO DAILY RF: 0 pravastatin 20 mg Tablet 20 mg PO DAILY RF: 0 hydrochlorothiazide 25 mg Tablet 25 mg PO DAILY RF: 0 fluticasone-salmeterol [Advair Diskus] 100-50 mcg/dose Blister With Device 1 puff INHALATION BID RF: 0 azithromycin [Zithromax Z-Alek] 250 mg Tablet 250 mg PO DAILY 4 Days Qty: 4 RF: 0 prednisone 50 mg Tablet 50 mg PO DAILY 4 Days Qty: 4 RF: 0 albuterol sulfate [Ventolin HFA] 90 mcg/actuation Hfa Aerosol Inhaler 2 puff INHALATION Q6H PRN (Reason: Shortness Of Breath) Qty: 1 RF: 0 Status ED Status: Pending Admission
[2018-02-21 22:29] LABS: Baso # (Auto) 0.1 th/mm3 (0.0-0.2); Baso % (Auto) 0.8 % (0.0-2.0); Eos # (Auto) 0.2 th/mm3 (0.0-0.4); Eos % (Auto) 1.2 % (0.0-4.0); Hematocrit 37.9 % (39.0-51.0); Hemoglobin 12.5 gm/dL (13.0-17.0); Lymph % (Auto) 20.5 % (9.0-44.0); Mean Corpuscular HGB Conc 33.1 % (32.0-36.0); Mean Corpuscular Hemoglobin 30.1 pg (27.0-34.0); Mean Platelet Volume 8.5 fL (7.0-11.0); Mono # (Auto) 1.5 th/mm3 (0.0-0.9); Mono % (Auto) 10.4 % (0.0-8.0); Neut # (Auto) 9.8 th/mm3 (1.8-7.7); Neut % (Auto) 67.1 % (16.0-70.0); Platelet Count 363 th/mm3 (150-450); Red Blood Count 4.16 mil/mm3 (4.50-5.90); Red Cell Distribution Width 14.5 % (11.6-17.2); White Blood Count 14.6 th/mm3 (4.0-11.0)
[2018-02-21 22:39] LABS: Calcium 9.1 mg/dL (8.5-10.1); Potassium 3.7 meq/L (3.5-5.1)
[2018-02-21] MEDS ORDERED: Azithromycin Inj 500 MG in Sodium Chlor 0.9% Inj 250 ML IV.SIG ONE (22:43)
[2018-02-21] MEDS ORDERED: Sodium Chlor 0.9% Inj 500 ML IV.SIG ONE (23:34)
[2018-02-21 23:36] LABS: ABG Base Excess 8.5 mmol/L (-2-2); ABG PCO2 54 mmHg (38-42); ABG PO2 165 mmHg (61-120)
--- NOTE | 2018-02-22 00:59 | P.HPFP ---
History of Present Illness Primary Care Physician: Carlos Gomez MD <ReidBreezy Mast - 02/22/18 16:48> Carlos Gomez MD <ChuyitacrystalMickie best 02/22/18 00:59> Chief Complaint: "My COPD" <Mickie Driver 02/22/18 01:46> History of Present Illness: 62-year-old male who was discharged 2 days ago after being hospitalized for a COPD exacerbation returns to the hospital with a chief complaint of dyspnea. Patient reports that since discharge he was unable to fill his medications. He reports that he has had increased mucus production and cough with increased work of breathing. The cough is so frequent that he has not slept since he was discharged from the hospital and feels exhausted. The patient reports some relief of his shortness of breath after using his friend's nebulizer machine earlier this afternoon. He is still smoking half a pack per day. He denies chest pain, fever, chills, abdominal pain, dysuria, headache. PMH: COPD Obesity Hyperlipidemia Hypertension PSH: Umbilical hernia repair Appendectomy as a child FamilyHx: father: lung cancer mother: alcohol abuse SocialHx: tobacco: Half a pack per day but previously smoked up to 3 packs/day for 20 years alcohol: seldom illicit drug: denies <Mickie Driver 02/22/18 01:46> - Diagnosis (1) Acute exacerbation of chronic obstructive pulmonary disease (COPD) (2) Hypertension (3) Hyperlipidemia (4) Smoker <Breezy Mathews Pro 02/22/18 16:48> (1) Acute exacerbation of chronic obstructive pulmonary disease (COPD) (2) Hypertension (3) Hyperlipidemia <Mickie Driver - 02/22/18 03:30> Inpatient Certification: I certify that the inpatient services were ordered in accordance with Medicare regulations governing the order. This includes certification that hospital inpatient services are reasonable and necessary and in the case of services not specified as inpatient-only under 42 CFR 419.22(n), that they are appropriately provided as inpatient services in accordance to with the 2-midnight benchmark under 43 CFR 412.3(e) <ReidBreezy Mast 02/22/18 16:48> I certify that the inpatient services were ordered in accordance with Medicare regulations governing the order. This includes certification that hospital inpatient services are reasonable and necessary and in the case of services not specified as inpatient-only under 42 CFR 419.22(n), that they are appropriately provided as inpatient services in accordance to with the 2-midnight benchmark under 43 CFR 412.3(e) <Mickie Driver - 02/22/18 00:59> Review of Systems All other systems reviewed negative except as stated in HPI <HerbjoseMickie Loaiza - 02/22/18 01:46> PMFSH - History History Provided By: Patient <Mickie Driver - 02/22/18 00:59> - Medical History Medical History: Medical History (Last Reviewed 02/21/18 @ 22:18 by HERVE Trinh) COPD (chronic obstructive pulmonary disease) [place] (hard of hearing) HTN (hypertension) Sleep apnea Umbilical hernia <Breezy Mathews - 02/22/18 16:48> Medical History (Last Reviewed 02/21/18 @ 22:18 by HERVE Trinh) COPD (chronic obstructive pulmonary disease) [place] (hard of hearing) HTN (hypertension) Sleep apnea Umbilical hernia <ChuyitajoseMickie A 02/22/18 00:59> - Social History I have reviewed the patient's Social History: Yes <NeishaMickie Demetri 01:46> - Tobacco History Second Hand Smoke Exposure: No <NeishaMickie Demetri 02/22/18 00:59> Tobacco Use In Past 30 Days: Yes <Mickie Driver 02/22/18 00:59> Smoking Status: Light tobacco smoker <NeishaMickie Demetri 02/22/18 00:59> Tobacco Type: Cigarettes <Mickie Driver 02/22/18 00:59> - Alcohol History How Often Do You Have a Drink Containing Alcohol: Monthly or less <Mickie Driver 02/22/18 00:59> - Substance Use History Substance History: No History of Abuse <Mickie Driver 02/22/18 00:59> - Immunization History Tetanus Immunization: >5 Years <Mickie Driver 02/22/18 00:59> Medications and Allergies Allergies Allergy/AdvReac Type Severity Reaction Status Date / Time No Known Allergies Allergy Verified 02/21/18 21:39 <Breezy Mathews - 02/22/18 16:48> Home Medications Medication Instructions Recorded Confirmed Type fluticasone-salmeterol [Advair 1 puff INHALATION BID 02/19/18 02/21/18 History Diskus] hydrochlorothiazide 25 mg PO DAILY 02/19/18 02/21/18 History lisinopril 20 mg PO DAILY 02/19/18 02/21/18 History pravastatin 20 mg PO DAILY 02/19/18 02/21/18 History <Breezy Mathews - 02/22/18 16:48> Active Medications: Active Medications Acetaminophen (Tylenol) 650 mg PO Q4H PRN PRN Reason: Temp > 100.4 Last Admin: 02/22/18 13:35 Dose: 650 mg Al Hydroxide/Mg Hydroxide (Milk Of Magnesia Liq) 30 ml PO Q12H PRN PRN Reason: Mild Constipation Albuterol (Albuterol Neb (Prn)) 2.5 mg NEB Q2HR NEB PRN PRN Reason: SHORTNESS OF BREATH Albuterol (Duoneb Neb (Thien)) 1 ampul NEB Q4HR NEB [facility] Last Admin: 02/22/18 15:11 Dose: 1 ampul Azithromycin (Zithromax) 250 mg PO DAILY [facility] Last Admin: 02/22/18 13:34 Dose: 250 mg Bisacodyl (Dulcolax Supp) 10 mg RECTAL DAILY PRN PRN Reason: SEVERE CONSITIPATION Heparin Sodium (Porcine) (Heparin Inj) 5,000 units SQ Q12HR [facility] Last Admin: 02/22/18 09:21 Dose: 5,000 units Hydrochlorothiazide (Hydrodiuril) 25 mg PO DAILY [facility] Last Admin: 02/22/18 09:20 Dose: 25 mg Lactulose (Lactulose Liq) 30 ml PO DAILY PRN PRN Reason: SEVERE CONSITIPATION Lisinopril (Prinivil) 20 mg PO DAILY [facility] Last Admin: 02/22/18 09:20 Dose: 20 mg Nicotine (Habitrol 21 Mg Patch.24 Hr) 1 patch T-DERMAL DAILY [facility] Last Admin: 02/22/18 09:20 Dose: 1 patch Ondansetron HCl (Zofran Inj) 4 mg IV.PUSH Q6H PRN PRN Reason: NAUSEA OR VOMITING Pravastatin Sodium (Pravachol) 20 mg PO DAILY [facility] Last Admin: 02/22/18 09:20 Dose: 20 mg Prednisone (Deltasone) 40 mg PO DAILY [facility] Last Admin: 02/22/18 09:21 Dose: 40 mg Sennosides (Senokot) 17.2 mg PO Q12H PRN PRN Reason: Moderate Constipation Sodium Chloride (Ns Flush) 2 ml IV.FLUSH BID [facility] Last Admin: 02/22/18 09:22 Dose: 2 ml Sodium Chloride (Ns Flush) 2 ml IV.FLUSH PRN PRN PRN Reason: FLUSH AFTER USING IV ACCESS <Breezy Mathews - 02/22/18 16:48> Exam Vital signs: Vital Signs 02/21/18 21:29 02/21/18 21:40 02/21/18 21:58 Temperature 98.9 F Pulse Rate 99 H 101 H 105 H Respiratory Rate 32 H 24 20 Blood Pressure 123/85 127/80 Pulse Oximetry 91 L 91 L 02/21/18 22:22 02/22/18 00:18 02/22/18 04:00 Temperature 98.6 F Pulse Rate 99 H Respiratory Rate 20 Blood Pressure 110/62 Pulse Oximetry 97 94 L 95 02/22/18 04:18 02/22/18 08:00 02/22/18 08:48 Temperature 98.5 F Pulse Rate 85 78 84 Respiratory Rate 20 20 Blood Pressure 149/88 H Pulse Oximetry 93 L 94 L 02/22/18 11:42 02/22/18 15:11 02/22/18 15:37 Temperature 97.3 F L Pulse Rate 100 H 100 H 94 H Respiratory Rate 20 20 20 Blood Pressure 129/61 Pulse Oximetry 93 L Intake & Output 02/21/18 02/22/18 02/22/18 18:59 06:59 18:59 Intake Total 990 / 990 Balance 990 / 990 Weight 113.398 kg Intake: IV 750 / 750 Azithromycin Inj 500 MG In NS 250 / 250 Inj 250 ML @ 250 mls/hr IV.SIG ONCE ONE Rx#:[id number] NS Inj 500 ML @ Wide Open IV. 500 / 500 SIG BOLUS ONE Rx#:[id number] Oral 240 / 240 Other: Date of Last Bowel Movement 02/21/18 Weight On Admission 113.398 kg <Breezy Mathews - 02/22/18 16:48> Vital Signs 02/21/18 21:29 02/21/18 21:40 02/21/18 21:58 Temperature 98.9 F Pulse Rate 99 H 101 H 105 H Respiratory Rate 32 H 24 20 Blood Pressure 123/85 127/80 Pulse Oximetry 91 L 91 L 02/21/18 22:22 02/22/18 00:18 Temperature Pulse Rate Respiratory Rate Blood Pressure Pulse Oximetry 97 94 L Intake & Output 02/21/18 02/21/18 02/22/18 06:59 18:59 06:59 Intake Total 750 / 750 Balance 750 / 750 Weight 113.398 kg Intake: IV 750 / 750 Azithromycin Inj 500 MG In NS 250 / 250 Inj 250 ML @ 250 mls/hr IV.SIG ONCE ONE Rx#:[id number] NS Inj 500 ML @ Wide Open IV. 500 / 500 SIG BOLUS ONE Rx#:[id number] <Mickie Driver - 02/22/18 00:59> Narrative: GENERAL: Pleasant obese male sitting on the edge of the hospital bed , NAD SKIN: No rashes. Cool and dry. HEAD: Atraumatic. Normocephalic. EYES: No scleral icterus. No injection or drainage. ENT: Nose without bleeding, purulent drainage or septal hematoma. Nasal cannula in place. CARDIOVASCULAR: Regular rate and rhythm without murmurs, gallops, or rubs. RESPIRATORY: Decreased air movement. Coughing intermittently. Clear to auscultation. No wheezes, rales, or rhonchi appreciated. GASTROINTESTINAL: Abdomen soft, non-tender, without guarding. Positive bowel sounds. Well healed scar in the midline of the abdomen MUSCULOSKELETAL: Mild LE edema to the ankle. No calf tenderness. NEUROLOGICAL: Awake and alert. Motor and sensory grossly within normal limits. Normal speech. <Mickie Driver - 02/22/18 01:46> Results - Labs Result diagrams: 02/21/18 21:45 02/21/18 21:45 <Breezy Mathews Pro - 02/22/18 16:48> Abnormal lab results 02/21/18 02/21/18 02/21/18 Range/Units 21:45 21:45 23:25 WBC 14.6 H (4.0-11.0) th/mm3 RBC 4.16 L (4.50-5.90) mil/mm3 Hgb 12.5 L (13.0-17.0) gm/dL Hct 37.9 L (39.0-51.0) % [place] % (Auto) 10.4 H (0.0-8.0) % Neut # (Auto) 9.8 H (1.8-7.7) th/mm3 [place] # (Auto) 1.5 H (0.0-0.9) th/mm3 ABG pCO2 54 H* (38-42) mmHg ABG pO2 165 H (61-120) mmHg ABG HCO3 33 H (22-26) mmol/L ABG Base Excess 8.5 H (-2-2) mmol/L Sodium 146 H (136-145) meq/L Carbon Dioxide 33.0 H (21.0-32.0) meq/L BUN 27 H (7-18) mg/dL Estimated GFR 59 L (>89) mL/min Short CBC 02/21/18 Range/Units 21:45 WBC 14.6 H (4.0-11.0) th/mm3 Hgb 12.5 L (13.0-17.0) gm/dL Hct 37.9 L (39.0-51.0) % Plt Count 363 D (150-450) th/mm3 BMP 02/21/18 21:45 Sodium 146 H Potassium 3.7 Chloride 105 Carbon Dioxide 33.0 H BUN 27 H Creatinine 1.24 Calcium 9.1 D <Breezy Mathews L - 02/22/18 16:48> Abnormal lab results 02/21/18 02/21/18 02/21/18 Range/Units 21:45 21:45 23:25 WBC 14.6 H (4.0-11.0) th/mm3 RBC 4.16 L (4.50-5.90) mil/mm3 Hgb 12.5 L (13.0-17.0) gm/dL Hct 37.9 L (39.0-51.0) % [place] % (Auto) 10.4 H (0.0-8.0) % Neut # (Auto) 9.8 H (1.8-7.7) th/mm3 [place] # (Auto) 1.5 H (0.0-0.9) th/mm3 ABG pCO2 54 H* (38-42) mmHg ABG pO2 165 H (61-120) mmHg ABG HCO3 33 H (22-26) mmol/L ABG Base Excess 8.5 H (-2-2) mmol/L Sodium 146 H (136-145) meq/L Carbon Dioxide 33.0 H (21.0-32.0) meq/L BUN 27 H (7-18) mg/dL Estimated GFR 59 L (>89) mL/min Short CBC 02/21/18 Range/Units 21:45 WBC 14.6 H (4.0-11.0) th/mm3 Hgb 12.5 L (13.0-17.0) gm/dL Hct 37.9 L (39.0-51.0) % Plt Count 363 D (150-450) th/mm3 BMP 02/21/18 21:45 Sodium 146 H Potassium 3.7 Chloride 105 Carbon Dioxide 33.0 H BUN 27 H Creatinine 1.24 Calcium 9.1 D <Mickie Driver - 02/22/18 00:59> - Imaging Impressions Chest X-Ray 02/21/18 21:45 CONCLUSION: The lungs are clear. <Breezy Mathews - 02/22/18 16:48> Impressions Chest X-Ray 02/21/18 21:45 CONCLUSION: The lungs are clear. <Mickie Driver - 02/22/18 00:59> Caprini VTE Risk Assessment Caprini VTE Risk Assessment: Moderate/High Risk (score >= 2) <Mickie Driver - 02/22/18 01:46> Caprini Risk Assessment Model: Point Value = 1 Point Value = 2 Point Value = 3 Point Value = 5 Age 41-60 Minor surgery BMI > 25 kg/m2 Swollen legs Varicose veins or History of unexplained or recurrent spontaneous Oral contraceptives or hormone replacement Sepsis (< 1 month) Serious lung disease, including pneumonia (< 1 month) Abnormal pulmonary function Acute myocardial infarction Congestive heart failure (< 1 month) History of inflammatory bowel disease Medical patient at bed rest Age 61-74 Arthroscopic surgery Major open surgery (> 45 min) Laparoscopic surgery (> 45 min) Malignancy Confined to bed (> 72 hours) Immobilizing plaster cast Central venous access Age >= 75 History of VTE Family history of VTE Factor V Leiden Prothrombin [id number] Lupus anticoagulant Anticardiolipin antibodies Elevated serum homocysteine Heparin-induced thrombocytopenia Other congenital or acquired thrombophilia Stroke (< 1 month) Elective arthroplasty Hip, pelvis, or leg fracture Acute spinal cord injury (< 1 month) <Breezy Mathews - 02/22/18 16:48> Point Value = 1 Point Value = 2 Point Value = 3 Point Value = 5 Age 41-60 Minor surgery BMI > 25 kg/m2 Swollen legs Varicose veins or History of unexplained or recurrent spontaneous Oral contraceptives or hormone replacement Sepsis (< 1 month) Serious lung disease, including pneumonia (< 1 month) Abnormal pulmonary function Acute myocardial infarction Congestive heart failure (< 1 month) History of inflammatory bowel disease Medical patient at bed rest Age 61-74 Arthroscopic surgery Major open surgery (> 45 min) Laparoscopic surgery (> 45 min) Malignancy Confined to bed (> 72 hours) Immobilizing plaster cast Central venous access Age >= 75 History of VTE Family history of VTE Factor V Leiden Prothrombin [id number] Lupus anticoagulant Anticardiolipin antibodies Elevated serum homocysteine Heparin-induced thrombocytopenia Other congenital or acquired thrombophilia Stroke (< 1 month) Elective arthroplasty Hip, pelvis, or leg fracture Acute spinal cord injury (< 1 month) <Mickie Driver - 02/22/18 01:46> Prophylaxis Regimen: Total Risk Factor Score Risk Level Prophylaxis Regimen 0-1 Low Early ambulation 2 Moderate Order ONE of the following: *Sequential Compression Device (SCD) *Heparin 5000 units SQ BID 3-4 Higher Order ONE of the following medications: *Heparin 5000 units SQ TID *Enoxaparin/Lovenox 40 mg SQ daily (WT < 150 kg, CrCl > 30 mL/min) *Enoxaparin/Lovenox 30 mg SQ daily (WT < 150 kg, CrCl > 10-29 mL/min) *Enoxaparin/Lovenox 30 mg SQ BID (WT < 150 kg, CrCl > 30 mL/min) AND/OR *Sequential Compression Device (SCD) 5 or more Highest Order ONE of the following medications: *Heparin 5000 units SQ TID (Preferred with Epidurals) *Enoxaparin/Lovenox 40 mg SQ daily (WT < 150 kg, CrCl > 30 mL/min) *Enoxaparin/Lovenox 30 mg SQ daily (WT < 150 kg, CrCl > 10-29 mL/min) *Enoxaparin/Lovenox 30 mg SQ BID (WT < 150 kg, CrCl > 30 mL/min) AND *Sequential Compression Device (SCD) <Breezy Mathews Pro - 02/22/18 16:48> Total Risk Factor Score Risk Level Prophylaxis Regimen 0-1 Low Early ambulation 2 Moderate Order ONE of the following: *Sequential Compression Device (SCD) *Heparin 5000 units SQ BID 3-4 Higher Order ONE of the following medications: *Heparin 5000 units SQ TID *Enoxaparin/Lovenox 40 mg SQ daily (WT < 150 kg, CrCl > 30 mL/min) *Enoxaparin/Lovenox 30 mg SQ daily (WT < 150 kg, CrCl > 10-29 mL/min) *Enoxaparin/Lovenox 30 mg SQ BID (WT < 150 kg, CrCl > 30 mL/min) AND/OR *Sequential Compression Device (SCD) 5 or more Highest Order ONE of the following medications: *Heparin 5000 units SQ TID (Preferred with Epidurals) *Enoxaparin/Lovenox 40 mg SQ daily (WT < 150 kg, CrCl > 30 mL/min) *Enoxaparin/Lovenox 30 mg SQ daily (WT < 150 kg, CrCl > 10-29 mL/min) *Enoxaparin/Lovenox 30 mg SQ BID (WT < 150 kg, CrCl > 30 mL/min) AND *Sequential Compression Device (SCD) <Mickie Driver - 02/22/18 00:59> Assessment and Plan - Assessment (1) Acute exacerbation of chronic obstructive pulmonary disease (COPD) Code(s): J44.1 - Chronic obstructive pulmonary disease with (acute) exacerbation Status: Acute (2) Hypertension Code(s): I10 - Essential (primary) hypertension Status: Acute (3) Hyperlipidemia Code(s): E78.5 - Hyperlipidemia, unspecified Status: Acute (4) Smoker Code(s): F17.200 - Nicotine dependence, unspecified, uncomplicated Status: Acute <Breezy Mathews Pro - 02/22/18 16:48> (1) Acute exacerbation of chronic obstructive pulmonary disease (COPD) Code(s): J44.1 - Chronic obstructive pulmonary disease with (acute) exacerbation Status: Acute Plan: 62 yo with a PMH of COPD who presents with increased work of breathing and increased mucus production. He is afebrile with a WBC of 14.6 but was on steroids during his previous hospitalization. Patient is on 2L of home O2 and required administration of BiPAP in the ED. ABG: PH of 7.41, PCO2 of 54, PO2 of 165 and bicarb of 33 (mixed respiratory acidosis and metabolic alkalosis) Chest x-ray: no acute cardiopulmonary disease In the ED the patient received: methylprednisolone IV 125 g x1 DuoNeb x3 azithromycin 500 IV x1. -Monitor vitals -Azithromycin 500 mg IV Q24H -Prednisone 40 mg QDay -Duoneb Q4H THIEN -Albuterol Q2H PRN -Titrate O2 to keep sats at max 92% (2) Hypertension Code(s): I10 - Essential (primary) hypertension Status: Acute Plan: -Continue home lisinopril and HCTZ -Monitor BP (3) Hyperlipidemia Code(s): E78.5 - Hyperlipidemia, unspecified Status: Acute Plan: Continue home pravastatin <Mickie Driver - 02/22/18 03:30> - Assessment and Plan Fluids: None at this time Electrolyte: Will monitor and replete as needed Nutrition: Regular diet DVT prophylaxis: Heparin 5000 units SQ Q12H <Mickie Driver - 02/22/18 01:46> - Attending Attestation The exam, history, and the medical decision-making described in the above note were completed with the assistance of the resident physician. I reviewed and agree with the findings presented. I attest that I had a [id number] encounter with the patient on the following day, and personally performed and documented my assessment and findings in the medical record. Please see my documentation on 02/22/18. <Breezy Mathews - 02/22/18 16:48>
[2018-02-22] MEDS ORDERED: Bisacodyl 10 MG Supp RECTAL PRN (01:00)
[2018-02-22] MEDS ORDERED: Enoxaparin Inj 40 MG/0.4 ML Syringe SQ SCH (01:00)
[2018-02-22] MEDS: Heparin - SQ 10,000 UNITS/ML Vial SQ SCH ×3 (05:02→21:11)
[2018-02-22] MEDS: hydroCHLOROthiazide 25 MG Tablet PO SCH (09:20)
[2018-02-22] MEDS: Lisinopril 20 MG Tablet PO SCH (09:20)
[2018-02-22] MEDS: predniSONE 20 MG Tablet PO SCH (09:21)
--- NOTE | 2018-02-22 11:36 | ECG ---
Date Performed: 02/22/2018 Time Performed: 08:00:44 PTAGE: 62 years EKG: Sinus rhythm WITH FREQUENT SUPRAVENTRICULAR PREMATURE COMPLEXES MODERATE ST DEPRESSION ABNORMAL ECG PREVIOUS TRACING : 02/21/2018 21.43 DOCTOR: Mikel Mederos Interpretating Date/Time 02/22/2018 11:34:38
--- NOTE | 2018-02-22 11:39 | ECG ---
Date Performed: 02/21/2018 Time Performed: 21:43:26 PTAGE: 62 years EKG: SINUS TACHYCARDIA WITH FREQUENT SUPRAVENTRICULAR PREMATURE COMPLEXES SEPTAL MYOCARDIAL INFA RCTION ABNORMAL ECG PREVIOUS TRACING : 02/20/2018 05.11 DOCTOR: Mikel Mederos Interpretating Date/Time 02/22/2018 11:36:17
--- NOTE | 2018-02-22 12:16 | P.PNFP ---
Subjective Interval history: Patient seen with Dr. Figueroa this morning. He reports coughing, congestion, and shortness of breath. Attempted to walk to bathroom without his oxygen today and felt lightheaded and short of breath. No chest pain, abdominal pain, nausea, vomiting, diarrhea. Minimal lower extremity edema. Currently on 2L oxygen and not in respiratory distress at this time. No fevers/chills. Results - Labs Result diagrams: 02/21/18 21:45 02/21/18 21:45 Abnormal lab results 02/21/18 02/21/18 02/21/18 Range/Units 21:45 21:45 23:25 WBC 14.6 H (4.0-11.0) th/mm3 RBC 4.16 L (4.50-5.90) mil/mm3 Hgb 12.5 L (13.0-17.0) gm/dL Hct 37.9 L (39.0-51.0) % [place] % (Auto) 10.4 H (0.0-8.0) % Neut # (Auto) 9.8 H (1.8-7.7) th/mm3 [place] # (Auto) 1.5 H (0.0-0.9) th/mm3 ABG pCO2 54 H* (38-42) mmHg ABG pO2 165 H (61-120) mmHg ABG HCO3 33 H (22-26) mmol/L ABG Base Excess 8.5 H (-2-2) mmol/L Sodium 146 H (136-145) meq/L Carbon Dioxide 33.0 H (21.0-32.0) meq/L BUN 27 H (7-18) mg/dL Estimated GFR 59 L (>89) mL/min Short CBC 02/21/18 Range/Units 21:45 WBC 14.6 H (4.0-11.0) th/mm3 Hgb 12.5 L (13.0-17.0) gm/dL Hct 37.9 L (39.0-51.0) % Plt Count 363 D (150-450) th/mm3 BMP 02/21/18 21:45 Sodium 146 H Potassium 3.7 Chloride 105 Carbon Dioxide 33.0 H BUN 27 H Creatinine 1.24 Calcium 9.1 D - Imaging Impressions Chest X-Ray 02/21/18 21:45 CONCLUSION: The lungs are clear. Physical Exam Vital signs: Vital Signs 02/21/18 21:29 02/21/18 21:40 02/21/18 21:58 Temperature 98.9 F Pulse Rate 99 H 101 H 105 H Respiratory Rate 32 H 24 20 Blood Pressure 123/85 127/80 Pulse Oximetry 91 L 91 L 02/21/18 22:22 02/22/18 00:18 02/22/18 04:00 Temperature 98.6 F Pulse Rate 99 H Respiratory Rate 20 Blood Pressure 110/62 Pulse Oximetry 97 94 L 95 02/22/18 04:18 02/22/18 08:00 02/22/18 08:48 Temperature 98.5 F Pulse Rate 85 78 84 Respiratory Rate 20 20 Blood Pressure 149/88 H Pulse Oximetry 93 L 94 L 02/22/18 11:42 Temperature Pulse Rate 100 H Respiratory Rate 20 Blood Pressure Pulse Oximetry Intake & Output 02/21/18 02/22/18 02/22/18 18:59 06:59 18:59 Intake Total 990 / 990 Balance 990 / 990 Weight 113.398 kg Intake: IV 750 / 750 Azithromycin Inj 500 MG In NS 250 / 250 Inj 250 ML @ 250 mls/hr IV.SIG ONCE ONE Rx#:[id number] NS Inj 500 ML @ Wide Open IV. 500 / 500 SIG BOLUS ONE Rx#:[id number] Oral 240 / 240 Other: Date of Last Bowel Movement 02/21/18 Weight On Admission 113.398 kg Narrative: General: Sitting on edge of bed, no distress, wearing nasal cannula Skin: No rashes or lesions, no cyanosis HEENT: Normocephalic, nasal congestion, normal pharynx Neck: No lymphadenopathy, supple CV: RRR, no murmurs, rubs, gallops. Pedal edema present bilaterally. Lungs: CTAB, prolonged expiratory phase, coughing during exam, sounds congested , no dullness to percussion, no egophonic changes Abdomen: Soft, nontender, nondistended, normal bowel sounds Ext: Pedal edema present Neuro: Awake, alert Psych: Fair insight, appropriate mood/affect Assessment and Plan - Assessment (1) Acute exacerbation of chronic obstructive pulmonary disease (COPD) Code(s): J44.1 - Chronic obstructive pulmonary disease with (acute) exacerbation Status: Acute Plan: 62 yo with a PMH of COPD who presents with increased work of breathing and increased mucus production. He is afebrile with a WBC of 14.6 but was on steroids during his previous hospitalization. Patient is on 2L of home O2 and required administration of BiPAP in the ED. He was recently discharged from our service but did not get his medications filled. Chest x-ray: no acute cardiopulmonary disease -Monitor vitals -Azithromycin 250 mg daily -Prednisone 40 mg QDay -Duoneb Q4H MICHAEL -Albuterol Q2H PRN -Titrate O2 to keep sats at 88-93% - Education/counseling about getting medications filled (2) Hypertension Code(s): I10 - Essential (primary) hypertension Status: Acute Plan: -Continue home lisinopril and HCTZ -Monitor BP (3) Hyperlipidemia Code(s): E78.5 - Hyperlipidemia, unspecified Status: Acute Plan: Continue home pravastatin (4) Smoker Code(s): F17.200 - Nicotine dependence, unspecified, uncomplicated Status: Acute Plan: Continue daily counseling on smoking, and how it is connected to his pulmonary disease Nicotine patch while in hospital - Assessment and Plan Fluids: by mouth Electrolyte: Will monitor and replace as needed Nutrition: Regular diet DVT prophylaxis: Heparin 5000 units SQ Q12H Discussed Condition With: Seen and discussed with Dr. Figueroa Discharge Planning: Pending improvement in respiratory status, does not feel back to his baseline at this time. Continue to educate on need to fill medications after discharge. Urge need to follow up with physician after discharge.
[2018-02-22] MEDS: Azithromycin 250 MG Tablet PO SCH (13:34)
[2018-02-22] MEDS: Acetaminophen 325 MG Tablet PO PRN (13:35)
[2018-02-22] MEDS ORDERED: Azithromycin Inj 500 MG in Sodium Chlor 0.9% Inj 250 ML IV.SIG SCH (22:00)
[2018-02-23 07:33] LABS: Baso % (Auto) 0.1 % (0.0-2.0); Eos % (Auto) 0.2 % (0.0-4.0); Hematocrit 38.7 % (39.0-51.0); Hemoglobin 12.5 gm/dL (13.0-17.0); Lymph # (Auto) 1.8 th/mm3 (1.0-4.8); Lymph % (Auto) 14.8 % (9.0-44.0); Mean Corpuscular HGB Conc 32.3 % (32.0-36.0); Mean Corpuscular Hemoglobin 29.6 pg (27.0-34.0); Mean Corpuscular Volume 91.8 fL (80.0-100.0); Mono # (Auto) 1.3 th/mm3 (0.0-0.9); Mono % (Auto) 11.2 % (0.0-8.0); Neut # (Auto) 8.8 th/mm3 (1.8-7.7); Neut % (Auto) 73.7 % (16.0-70.0); Platelet Count 342 th/mm3 (150-450); Red Blood Count 4.21 mil/mm3 (4.50-5.90); Red Cell Distribution Width 14.5 % (11.6-17.2)
[2018-02-23 08:12] LABS: Carbon Dioxide 35.7 meq/L (21.0-32.0)
--- NOTE | 2018-02-23 08:29 | P.PNFP ---
Subjective Interval history: Patient seen and examined at bedside this am. Patient reports he is still having severe sob with ambulation even on his baseline portable 2L of oxygen. He reports low BP this am as when he when to the bathroom, the Bp was reported in his portable oxygen device with sbp in the 70s. Pt also states he is still having productive cough, mild ROSEN and on and off chills. Denies CP or palpitation. Pt is tolerating po well. <Anastasiia Villavicencio D - 02/23/18 08:29> Results - Labs Result diagrams: 02/23/18 06:45 02/23/18 06:45 <Oleg Avina R - 02/23/18 13:24> Abnormal lab results 02/23/18 02/23/18 Range/Units 06:45 06:45 WBC 12.0 H (4.0-11.0) th/mm3 RBC 4.21 L (4.50-5.90) mil/mm3 Hgb 12.5 L (13.0-17.0) gm/dL Hct 38.7 L (39.0-51.0) % Neut % (Auto) 73.7 H (16.0-70.0) % [place] % (Auto) 11.2 H (0.0-8.0) % Neut # (Auto) 8.8 H (1.8-7.7) th/mm3 [place] # (Auto) 1.3 H (0.0-0.9) th/mm3 Carbon Dioxide 35.7 H (21.0-32.0) meq/L Anion Gap 4 L (5-15) meq/L BUN 26 H (7-18) mg/dL Estimated GFR 73 L (>89) mL/min Random Glucose 128 H (74-106) mg/dL Short CBC 02/23/18 Range/Units 06:45 WBC 12.0 H (4.0-11.0) th/mm3 Hgb 12.5 L (13.0-17.0) gm/dL Hct 38.7 L (39.0-51.0) % Plt Count 342 (150-450) th/mm3 BMP 02/23/18 06:45 Sodium 143 Potassium 4.5 D Chloride 103 Carbon Dioxide 35.7 H BUN 26 H Creatinine 1.03 Calcium 9.0 <Oleg Avina R - 02/23/18 13:24> Abnormal lab results 02/23/18 02/23/18 Range/Units 06:45 06:45 WBC 12.0 H (4.0-11.0) th/mm3 RBC 4.21 L (4.50-5.90) mil/mm3 Hgb 12.5 L (13.0-17.0) gm/dL Hct 38.7 L (39.0-51.0) % Neut % (Auto) 73.7 H (16.0-70.0) % [place] % (Auto) 11.2 H (0.0-8.0) % Neut # (Auto) 8.8 H (1.8-7.7) th/mm3 [place] # (Auto) 1.3 H (0.0-0.9) th/mm3 Estimated GFR 73 L (>89) mL/min Short CBC 02/23/18 Range/Units 06:45 WBC 12.0 H (4.0-11.0) th/mm3 Hgb 12.5 L (13.0-17.0) gm/dL Hct 38.7 L (39.0-51.0) % Plt Count 342 (150-450) th/mm3 [facility] 02/23/18 06:45 Creatinine 1.03 <Anastasiia Villavicencio D - 02/23/18 08:29> - Imaging Impressions Chest X-Ray 02/23/18 00:00 CONCLUSION: 1. Minimal bibasilar atelectasis. 2. Cardiomegaly. 3. Degenerative changes throughout the thoracic spine. <Oleg Avina R - 02/23/18 13:24> Physical Exam Vital signs: Vital Signs 02/22/18 15:11 02/22/18 15:37 02/22/18 20:00 Temperature 97.3 F L 97.5 F L Pulse Rate 100 H 94 H 92 H Respiratory Rate 20 20 22 Blood Pressure 129/61 119/71 Pulse Oximetry 93 L 96 02/22/18 21:22 02/22/18 23:12 02/23/18 00:00 Temperature 97.3 F L Pulse Rate 92 H 88 Respiratory Rate 22 22 Blood Pressure 104/67 Pulse Oximetry 96 96 02/23/18 03:56 02/23/18 07:27 02/23/18 07:30 Temperature 98.4 F Pulse Rate 85 86 82 Respiratory Rate 22 16 18 Blood Pressure 115/55 L 102/58 L Pulse Oximetry 95 96 95 02/23/18 08:00 02/23/18 12:00 02/23/18 12:41 Temperature 98.4 F Pulse Rate 84 84 Respiratory Rate 18 18 Blood Pressure 124/70 Pulse Oximetry 96 93 L Intake & Output 02/22/18 02/23/18 02/23/18 18:59 06:59 18:59 Other: # Voids 3 Date of Last Bowel Movement 02/21/18 <HoangTamiOleg R - 02/23/18 13:24> Vital Signs 02/22/18 08:48 02/22/18 11:42 02/22/18 15:11 Temperature Pulse Rate 84 100 H 100 H Respiratory Rate 20 20 20 Blood Pressure Pulse Oximetry 94 L 02/22/18 15:37 02/22/18 20:00 02/22/18 21:22 Temperature 97.3 F L 97.5 F L Pulse Rate 94 H 92 H 92 H Respiratory Rate 20 22 22 Blood Pressure 129/61 119/71 Pulse Oximetry 93 L 96 02/22/18 23:12 02/23/18 00:00 02/23/18 03:56 Temperature 97.3 F L 98.4 F Pulse Rate 88 85 Respiratory Rate 22 22 Blood Pressure 104/67 115/55 L Pulse Oximetry 96 96 95 02/23/18 07:27 02/23/18 07:30 Temperature Pulse Rate 86 82 Respiratory Rate 16 18 Blood Pressure 102/58 L Pulse Oximetry 96 95 Intake & Output 02/22/18 02/23/18 02/23/18 18:59 06:59 18:59 Other: # Voids 3 Date of Last Bowel Movement 02/21/18 <CalzadoAnastasiia D - 02/23/18 08:29> - Constitutional no acute distress <CalzadoAnastasiia D - 02/23/18 08:29> - Routine HEENT Exam Head: Present: normocephalic <CalzadoAnastasiia D - 02/23/18 08:29> Eye: Present: EOMI, PERRL <Calzado,Anastasiia D - 02/23/18 08:29> ENT: Present: mucous membranes moist <CalzadoAnastasiia D - 02/23/18 08:29> - Routine Neck Exam Present: supple, full ROM <Anastasiia Villavicencio 02/23/18 08:29> - Routine Respiratory Exam Present: crackles (Crackles appreciated at Left lower base). Absent: accessory muscle use <Anastasiia Villavicencio - 02/23/18 08:29> - Routine Cardiovascular Exam Present: RRR, S1, S2. Absent: murmur, gallop, rubs <Anastasiia Villavicencio 08:29> - Routine Abdominal Exam Comments: obese abdomen <Anastasiia Villavicencio 02/23/18 08:29> - Routine Extremities Exam Absent: cyanosis <Anastasiia Villavicencio 02/23/18 08:29> Comments: ext well perfused BL <Anastasiia Villavicencio 02/23/18 08:29> Assessment and Plan - Assessment (1) Acute exacerbation of chronic obstructive pulmonary disease (COPD) Code(s): J44.1 - Chronic obstructive pulmonary disease with (acute) exacerbation Status: Acute (2) Hypertension Code(s): I10 - Essential (primary) hypertension Status: Acute (3) Hyperlipidemia Code(s): E78.5 - Hyperlipidemia, unspecified Status: Acute (4) Smoker Code(s): F17.200 - Nicotine dependence, unspecified, uncomplicated Status: Acute (5) Nutrition, metabolism, and development symptoms Code(s): R63.8 - Other symptoms and signs concerning food and fluid intake Status: Acute <Oleg Avina R - 02/23/18 13:24> (1) Acute exacerbation of chronic obstructive pulmonary disease (COPD) Code(s): J44.1 - Chronic obstructive pulmonary disease with (acute) exacerbation Status: Acute Plan: 62 yo with a PMH of COPD who presents with increased work of breathing and increased mucus production. He is afebrile with a WBC of 14.6 but was on steroids during his previous hospitalization. Patient is on 2L of home O2 and required administration of BiPAP in the ED. He was recently discharged from our service but did not get his medications filled. Chest x-ray: no acute cardiopulmonary disease -Monitor vitals -Azithromycin 250 mg daily -Prednisone 40 mg QDay -Duoneb Q4H MICHAEL -Albuterol Q2H PRN -Titrate O2 to keep sats at 88-93% -Continuous pulse ox - Education/counseling about getting medications filled - Will repeat CXR due to crackles appreciated on lung exam today -Pulmonology consulted, appreciate recommendations, patient follows with Dr. Frausto (2) Hypertension Code(s): I10 - Essential (primary) hypertension Status: Acute Plan: -Continue home lisinopril and HCTZ -Monitor BP (3) Hyperlipidemia Code(s): E78.5 - Hyperlipidemia, unspecified Status: Acute Plan: Continue home pravastatin (4) Smoker Code(s): F17.200 - Nicotine dependence, unspecified, uncomplicated Status: Acute Plan: Continue daily counseling on smoking, and how it is connected to his pulmonary disease Nicotine patch while in hospital (5) Nutrition, metabolism, and development symptoms Code(s): R63.8 - Other symptoms and signs concerning food and fluid intake Status: Acute Plan: Fluids: Not indicated at this time Electrolytes: Replete as needed Diet: Regular adult diet DVT prophylaxis: Heparin SQ twice daily <Anastasiia Villavicencio 02/23/18 10:57> - Assessment and Plan Fluids: by mouth Electrolyte: Will monitor and replace as needed Nutrition: Regular diet DVT prophylaxis: Heparin 5000 units SQ Q12H <Anastasiia Villavicencio 02/23/18 08:29> - Attending Attestation This patient was seen and examined. The assessment and plan was discussed with the resident physician and I am in agreement with continued medical care as documented in this encounter. OLEG AVINA MD <Oleg Avina - 02/23/18 13:24>
[2018-02-23 08:37] LABS: Potassium 4.5 meq/L (3.5-5.1)
[2018-02-23] MEDS: hydroCHLOROthiazide 25 MG Tablet PO SCH (08:56)
[2018-02-23] MEDS: Azithromycin 250 MG Tablet PO SCH (08:57)
[2018-02-23] MEDS: predniSONE 20 MG Tablet PO SCH (08:57)
[2018-02-23] MEDS: Heparin - SQ 10,000 UNITS/ML Vial SQ SCH ×2 (08:57→20:32)
[2018-02-23] MEDS: Lisinopril 20 MG Tablet PO SCH (09:05)
--- NOTE | 2018-02-23 09:39 | XR ---
EXAM DATE: 02/23/2018 9:33 AM EST AGE/SEX: 62 years / Male INDICATIONS: . Short of breath. CLINICAL DATA: This is the patient's subsequent encounter. Patient reports that signs and symptoms h ave been present for 4 - 6 days and indicates a pain score of 0/10. MEDICAL/SURGICAL HISTORY: Chronic obstructive pulmonary disease. Hypertension. Smoker. Sleep a pnea. Umbilical hernia repair. [place] [facility] [place]. . FINDINGS: The heart is enlarged. Minimal bibasilar atelectasis is noted. The pulmonary vascular pattern is norm al. Degenerative changes are noted throughout the thoracic spine. CONCLUSION: 1. Minimal bibasilar atelectasis. 2. Cardiomegaly. 3. Degenerative changes throughout the thoracic spine. Electronically signed by: Samir Mckay MD 02/23/2018 9:37 AM EST
--- NOTE | 2018-02-23 18:24 | ECHRPT ---
Indication: Shortness of Breath CONCLUSIONS Normal left ventricular size. Mild concentric left ventricular hypertrophy. The left ventricular systolic function is normal with an estimated ejection fraction in the range of 55-60%. Normal atrial septal thickness. The tricuspid valve is not well visualized. The pulmonary valve is not well visualized. BP: / HR: Rhythm: MEASUREMENTS (Male / Female) Normal Values Technical Quality:Technically difficult study 2D ECHO LV Diastolic Diameter PLAX 3.7 cm 4.2 - 5.9 / 3.9 - 5.3 cm LV Systolic Diameter PLAX 2.7 cm IVS Diastolic Thickness 1.2 cm 0.6 - 1.0 / 0.6 - 0.9 cm LVPW Diastolic Thickness 1.3 cm 0.6 - 1.0 / 0.6 - 0.9 cm LV Relative Wall Thickness 0.7 RV Internal Dim ED PLAX 3.3 cm Aortic Root Diameter 3.1 cm LA Systolic Diameter LX 3.3 cm 3.0 - 4.0 / 2.7 - 3.8 cm FINDINGS LEFT VENTRICLE Normal left ventricular size. Mild concentric left ventricular hypertrophy. The left ventricular systolic function is normal with an estimated ejection fraction in the range of 55-60%. RIGHT VENTRICLE Normal right ventricular size and systolic function. LEFT ATRIUM The left atrial size is normal. RIGHT ATRIUM The right atrial size is normal. ATRIAL SEPTUM Normal atrial septal thickness. AORTA The aortic root and proximal ascending aorta are normal in size on limited imaging. MITRAL VALVE Structurally normal mitral valve. AORTIC VALVE Trileaflet aortic valve. TRICUSPID VALVE The tricuspid valve is not well visualized. PULMONARY VALVE The pulmonary valve is not well visualized. VESSELS The inferior vena cava is normal in size. PERICARDIUM No pericardial effusion. Bobby Guerra MD, FACC, [facility] [place] (Electronically Signed) Final Date:23 February 2018 18:23
--- NOTE | 2018-02-23 20:30 | MB ---
cc: Lisbet Frausto MD DATE: 02/23/2018 REASON FOR CONSULTATION: COPD exacerbation, obstructive sleep apnea. HISTORY OF PRESENT ILLNESS: Mr. Dowd is a 62-year-old male with a known history of COPD, who was admitted with increasing shortness of breath and chest wheeze. He had been admitted a few days previously with recurrent symptoms apparently related to his inability to initiate therapy at home because he did not have his medication. He denies a history of fever or chills. He has a cough and expectoration of copious amounts of whitish mucoid secretions. No fevers, no chills, no hemoptysis. He does have a long heavy smoking history and continued to smoke until the time of hospitalization. PAST MEDICAL HISTORY: 1. COPD. 2. Obstructive sleep apnea. 3. Obesity. 4. Hypertension. 5. Hyperlipidemia. 6. History of hernia repair and appendectomy as a child. FAMILY HISTORY: Positive for COPD, lung cancer and alcohol abuse. SOCIAL HISTORY: He smokes 1/2 pack of cigarettes a day, down from 3 packs a day for over 20 years. Rarely drinks alcohol and does not use drugs. No TB. No industrial exposure. MEDICATIONS: Include: 1. Nebulized albuterol and ipratropium. 2. Zithromax. 3. Lactulose. 4. Lisinopril. 5. Nicotine patch. 6. Pravastatin. 7. Prednisone. ALLERGIES: NONE KNOWN TO MEDICATIONS. REVIEW OF SYSTEMS: A 12-point review of systems as per HPI and past history, otherwise negative. PHYSICAL EXAMINATION: GENERAL: The patient is alert. VITAL SIGNS: Temperature 97.5, pulse 86, respirations 20, blood pressure 120/80, oxygen saturation 96% on 2 liters oxygen nasal cannula. HEENT: Unremarkable. Eyes without icterus. NECK: Without adenopathy or thyroid enlargement. Central trachea. CHEST: Without dullness to percussion. Scattered wheeze on auscultation. CARDIOVASCULAR: PMI not appreciated. S1, S2 audible. No murmur. No rub. A 1/6 ejection systolic murmur at the left sternal border. ABDOMEN: Lax with audible bowel sounds. PSYCHIATRIC: No clubbing, cyanosis or edema. SKIN: Normal. LYMPHATIC: No lymphadenopathy. LABORATORY DATA: White count 12,000, hemoglobin 12, hematocrit 28, platelets 342,000. Arterial blood gas on 02/21/2018, pH 7.41, pCO2 of 54, pO2 of 165. Sodium 143, potassium 4.5, BUN 26, creatinine 1.0. IMPRESSION: 1. Chronic obstructive pulmonary disease exacerbation. 2. Hypoxic and hypercarbic respiratory failure. 3. Obstructive sleep apnea. 4. Obesity. 5. Hypertension. 6. Hyperlipidemia. 7. Tobacco abuse. PLAN: 1. The patient is to continue oxygen therapy as needed and BiPAP therapy while sleeping. 2. Bronchodilator therapy. 3. I encouraged him to continue to smoking cessation. He is on a nicotine patch. 4. A dietary evaluation for weight loss would be appropriate as well and this would be quite helpful. I do thank you for asking me to partake in Mr. Dowd's care. MD PHANI oWod/anne , 07:17 PM , 07:27 PM
[2018-02-23 21:00] LABS: ABG Base Excess 8.6 mmol/L (-2-2); ABG PCO2 52 mmHg (38-42); ABG PO2 77 mmHg (61-120)
[2018-02-23] MEDS: Acetaminophen 325 MG Tablet PO PRN (23:34)
[2018-02-24] MEDS: Heparin - SQ 10,000 UNITS/ML Vial SQ SCH ×2 (08:36→20:03)
[2018-02-24] MEDS: hydroCHLOROthiazide 25 MG Tablet PO SCH (08:36)
[2018-02-24] MEDS: Azithromycin 250 MG Tablet PO SCH (08:36)
[2018-02-24] MEDS: Lisinopril 20 MG Tablet PO SCH (08:36)
[2018-02-24] MEDS: predniSONE 20 MG Tablet PO SCH (08:36)
[2018-02-24 08:51] LABS: Baso % (Auto) 0.2 % (0.0-2.0); Eos # (Auto) 0.2 th/mm3 (0.0-0.4); Hematocrit 39.1 % (39.0-51.0); Hemoglobin 12.7 gm/dL (13.0-17.0); Lymph # (Auto) 3.3 th/mm3 (1.0-4.8); Lymph % (Auto) 27.8 % (9.0-44.0); Mean Corpuscular HGB Conc 32.5 % (32.0-36.0); Mean Corpuscular Hemoglobin 29.6 pg (27.0-34.0); Mean Corpuscular Volume 91.2 fL (80.0-100.0); Mean Platelet Volume 7.5 fL (7.0-11.0); Mono # (Auto) 1.3 th/mm3 (0.0-0.9); Mono % (Auto) 11.2 % (0.0-8.0); Neut % (Auto) 58.8 % (16.0-70.0); Platelet Count 345 th/mm3 (150-450); Red Blood Count 4.28 mil/mm3 (4.50-5.90); Red Cell Distribution Width 14.5 % (11.6-17.2); White Blood Count 11.9 th/mm3 (4.0-11.0)
[2018-02-24 09:35] LABS: Calcium 8.9 mg/dL (8.5-10.1); Carbon Dioxide 35.2 meq/L (21.0-32.0); Potassium 3.6 meq/L (3.5-5.1)
[2018-02-24] MEDS ORDERED: Azithromycin 250 MG Tablet PO ONE (11:16)
[2018-02-24] MEDS: Benzonatate 100 MG Capsule PO PRN ×2 (12:19→21:57)
--- NOTE | 2018-02-24 13:04 | P.PNFP ---
Subjective Interval history: Patient seen and examined at bedside. He reports that he still does not feel well. Complains of productive cough. He is still feeling short of breath walking short distances from chair to bathroom while on 2 L of oxygen. Denies any chest pain, shortness of breath, fever, chills, nausea, vomiting or abdominal pain. <Anastasiia Villavicencio D - 02/24/18 15:26> Results - Labs Result diagrams: 02/25/18 07:03 02/25/18 07:03 <Oleg Avina R - 02/25/18 10:04> Abnormal lab results 02/25/18 02/25/18 Range/Units 07:03 07:03 WBC 14.9 H (4.0-11.0) th/mm3 RBC 4.22 L (4.50-5.90) mil/mm3 Hgb 12.7 L (13.0-17.0) gm/dL Hct 38.6 L (39.0-51.0) % [place] % (Auto) 9.2 H (0.0-8.0) % Neut # (Auto) 10.0 H (1.8-7.7) th/mm3 [place] # (Auto) 1.4 H (0.0-0.9) th/mm3 Carbon Dioxide 34.2 H (21.0-32.0) meq/L BUN 27 H (7-18) mg/dL Estimated GFR 67 L (>89) mL/min Short CBC 02/25/18 Range/Units 07:03 WBC 14.9 H (4.0-11.0) th/mm3 Hgb 12.7 L (13.0-17.0) gm/dL Hct 38.6 L (39.0-51.0) % Plt Count 348 (150-450) th/mm3 [facility] 02/25/18 07:03 Sodium 143 Potassium 3.9 Chloride 103 Carbon Dioxide 34.2 H BUN 27 H Creatinine 1.11 Calcium 8.5 <Oleg Avina R - 02/25/18 10:04> Abnormal lab results 02/23/18 02/24/18 02/24/18 Range/Units 20:49 08:16 08:16 WBC 11.9 H (4.0-11.0) th/mm3 RBC 4.28 L (4.50-5.90) mil/mm3 Hgb 12.7 L (13.0-17.0) gm/dL [place] % (Auto) 11.2 H (0.0-8.0) % [place] # (Auto) 1.3 H (0.0-0.9) th/mm3 ABG pCO2 52 H* (38-42) mmHg ABG HCO3 33 H (22-26) mmol/L ABG Base Excess 8.6 H (-2-2) mmol/L Carbon Dioxide 35.2 H (21.0-32.0) meq/L Anion Gap 4 L (5-15) meq/L BUN 27 H (7-18) mg/dL Estimated GFR 68 L (>89) mL/min Short CBC 02/24/18 Range/Units 08:16 WBC 11.9 H (4.0-11.0) th/mm3 Hgb 12.7 L (13.0-17.0) gm/dL Hct 39.1 (39.0-51.0) % Plt Count 345 (150-450) th/mm3 BMP 02/24/18 08:16 Sodium 141 Potassium 3.6 D Chloride 102 Carbon Dioxide 35.2 H BUN 27 H Creatinine 1.09 Calcium 8.9 <Anastasiia Villavicencio D - 02/24/18 13:04> Physical Exam Vital signs: Vital Signs 02/24/18 11:33 02/24/18 12:00 02/24/18 15:14 Temperature 97.8 F Pulse Rate 82 90 90 Respiratory Rate 22 18 18 Blood Pressure 108/68 Pulse Oximetry 93 L 02/24/18 15:15 02/24/18 16:00 02/24/18 19:38 Temperature 97.8 F Pulse Rate 93 H 93 H Respiratory Rate 18 16 Blood Pressure 116/70 Pulse Oximetry 93 L 94 L 02/24/18 20:00 02/25/18 00:00 02/25/18 01:08 Temperature 97.6 F 97.8 F Pulse Rate 74 68 90 Respiratory Rate 18 14 16 Blood Pressure 110/57 L 112/69 Pulse Oximetry 93 L 97 02/25/18 03:32 02/25/18 04:35 02/25/18 07:41 Temperature 97.8 F Pulse Rate 78 88 82 Respiratory Rate 17 16 16 Blood Pressure 118/64 Pulse Oximetry 93 L 95 02/25/18 08:00 Temperature 98.0 F Pulse Rate 81 Respiratory Rate 20 Blood Pressure 110/78 Pulse Oximetry 95 Intake & Output 02/24/18 02/25/18 02/25/18 18:59 06:59 18:59 Intake Total 240 / 240 250 / 250 Balance 240 / 240 250 / 250 Weight 114.5 kg Intake: IV 250 / 250 Azithromycin Inj 500 MG In NS 250 / 250 Inj 250 ML @ 250 mls/hr IV.SIG Q24H MICHAEL Rx#:[id number] Oral 240 / 240 Other: # Voids 3 <Lonnymaria rOleg R - 02/25/18 10:04> Vital Signs 02/23/18 15:35 02/23/18 17:40 02/23/18 17:42 Temperature 97.2 F L Pulse Rate 91 H 66 Respiratory Rate 20 20 Blood Pressure 120/84 Pulse Oximetry 94 L 94 L 02/23/18 20:00 02/23/18 20:40 02/23/18 20:41 Temperature 97.8 F Pulse Rate 96 H 85 Respiratory Rate 17 22 Blood Pressure 117/73 Pulse Oximetry 95 96 02/23/18 23:22 02/23/18 23:23 02/24/18 00:00 Temperature 97.5 F L Pulse Rate 74 70 Respiratory Rate 20 18 Blood Pressure 103/70 Pulse Oximetry 94 L 94 L 02/24/18 03:34 02/24/18 04:00 02/24/18 08:00 Temperature 97.5 F L 98.7 F Pulse Rate 80 77 80 Respiratory Rate 18 18 19 Blood Pressure 102/56 L 113/71 Pulse Oximetry 98 94 L 93 L 02/24/18 08:20 02/24/18 11:33 Temperature Pulse Rate 82 82 Respiratory Rate 22 22 Blood Pressure Pulse Oximetry 95 Intake & Output 02/23/18 02/24/18 02/24/18 18:59 06:59 18:59 Intake Total 240 / 240 Balance 240 / 240 Weight 114.9 kg Intake: Oral 240 / 240 Other: # Voids 2 <CalzadoAnastasiia D - 02/24/18 13:04> - Constitutional no acute distress <CalzadoAnastasiia D - 02/24/18 15:26> - Routine HEENT Exam Head: Present: normocephalic <Calzado,Anastasiia D 02/24/18 15:26> Eye: Present: EOMI, PERRL <Anastasiia Villavicencio 02/24/18 15:26> ENT: Present: mucous membranes moist <Anastasiia Villavicencio 02/24/18 15:26> - Routine Neck Exam Present: supple <Anastasiia Villavicencio 02/24/18 15:26> - Routine Respiratory Exam Present: diminished air movement. Absent: accessory muscle use <Anastasiia Villavicencio 02/24/18 15:26> - Routine Cardiovascular Exam Present: RRR, S1, S2. Absent: murmur, gallop, rubs <Anastasiia Villavicencio 15:26> - Routine Abdominal Exam Present: soft, normoactive bowel sounds <Anastasiia Villavicencio 02/24/18 15:26> - Routine Extremities Exam Present: pulses intact. Absent: cyanosis, edema, full ROM <Anastasiia Villavicencio 02/24/18 15:26> - Routine Skin Exam Present: intact <Anastasiia Villavicencio 02/24/18 15:26> - Routine Neurological Exam Present: oriented X3, CN II-XII intact <Anastasiia Villavicencio 02/24/18 15:26> Assessment and Plan - Assessment (1) Acute exacerbation of chronic obstructive pulmonary disease (COPD) Code(s): J44.1 - Chronic obstructive pulmonary disease with (acute) exacerbation Status: Acute (2) H. influenzae infection Code(s): A49.2 - Hemophilus influenzae infection, unspecified site Status: Acute (3) Hypertension Code(s): I10 - Essential (primary) hypertension Status: Acute (4) Hyperlipidemia Code(s): E78.5 - Hyperlipidemia, unspecified Status: Acute (5) Smoker Code(s): F17.200 - Nicotine dependence, unspecified, uncomplicated Status: Acute (6) Bacteremia due to Gram-positive bacteria Code(s): R78.81 - Bacteremia Status: Acute (7) Nutrition, metabolism, and development symptoms Code(s): R63.8 - Other symptoms and signs concerning food and fluid intake Status: Acute <Oleg Avina 02/25/18 10:04> (1) Acute exacerbation of chronic obstructive pulmonary disease (COPD) Code(s): J44.1 - Chronic obstructive pulmonary disease with (acute) exacerbation Status: Acute Plan: 62 yo with a PMH of COPD who presents with increased work of breathing and increased mucus production. He is afebrile with a WBC of 14.6 but was on steroids during his previous hospitalization. Patient is on 2L of home O2 and required administration of BiPAP in the ED. He was recently discharged from our service but did not get his medications filled. Chest x-ray: no acute cardiopulmonary disease -Monitor vitals -Azithromycin 500 mg daily -Prednisone 40 mg QDay -Duoneb Q4H MICHAEL -Albuterol Q2H PRN -Titrate O2 to keep sats at 88-93% -Tessalon Perles as needed -Continuous pulse ox - Education/counseling about getting medications filled - repeat CXR 02/23: Minimal bibasilar atelectasis -Pulmonology consulted, appreciate recommendations, patient follows with Dr. Frausto (2) H. influenzae infection Code(s): A49.2 - Hemophilus influenzae infection, unspecified site Status: Acute Plan: Patient with positive sputum culture growing H influenza from prior hospitalization on 02/19 Patient has been on 250 mg daily of azithromycin. We will increase azithromycin dose to 500mg daily IV starting tomorrow. An additional 250 mg azithromycin was given this morning in order to complete total dose of 500 mg p.o. today. We will transition to IV abx tomorrow (3) Hypertension Code(s): I10 - Essential (primary) hypertension Status: Acute Plan: -Continue home lisinopril and HCTZ -Monitor BP (4) Hyperlipidemia Code(s): E78.5 - Hyperlipidemia, unspecified Status: Acute Plan: Continue home pravastatin (5) Smoker Code(s): F17.200 - Nicotine dependence, unspecified, uncomplicated Status: Acute Plan: Continue daily counseling on smoking, and how it is connected to his pulmonary disease Nicotine patch while in hospital (6) Bacteremia due to Gram-positive bacteria Code(s): R78.81 - Bacteremia Status: Acute Plan: Patient with possible bacteremia due to Corynebacterium based on 1/ positive blood cultures taken at prior admission 02/19 Discussed results with micro lab and they stated final report should be in later in the afternoon, suspicion for possible contamination VS WNL Follow-up repeat blood culture results (7) Nutrition, metabolism, and development symptoms Code(s): R63.8 - Other symptoms and signs concerning food and fluid intake Status: Acute Plan: Fluids: Not indicated at this time Electrolytes: Replete as needed Diet: Regular adult diet DVT prophylaxis: Heparin SQ twice daily <Anastasiia Villavicencio - 02/24/18 15:10> - Assessment and Plan Fluids: by mouth Electrolyte: Will monitor and replace as needed Nutrition: Regular diet DVT prophylaxis: Heparin 5000 units SQ Q12H <Anastasiia Villavicencio - 02/24/18 13:04> - Attending Attestation This patient was seen and examined. The assessment and plan was discussed with the resident physician and I am in agreement with continued medical care as documented in this encounter. OLEG AVINA MD <Oleg Avina - 02/25/18 10:04>
--- NOTE | 2018-02-24 18:49 | P.PN ---
Subjective Interval history: ALERT SITTING AT SIDE OF BED EATING DINNER LESS SOB Physical Exam Vital signs: Vital Signs 02/23/18 20:00 02/23/18 20:40 02/23/18 20:41 Temperature 97.8 F Pulse Rate 96 H 85 Respiratory Rate 17 22 Blood Pressure 117/73 Pulse Oximetry 95 96 02/23/18 23:22 02/23/18 23:23 02/24/18 00:00 Temperature 97.5 F L Pulse Rate 74 70 Respiratory Rate 20 18 Blood Pressure 103/70 Pulse Oximetry 94 L 94 L 02/24/18 03:34 02/24/18 04:00 02/24/18 08:00 Temperature 97.5 F L 98.7 F Pulse Rate 80 77 80 Respiratory Rate 18 18 19 Blood Pressure 102/56 L 113/71 Pulse Oximetry 98 94 L 93 L 02/24/18 08:20 02/24/18 11:33 02/24/18 12:00 Temperature 97.8 F Pulse Rate 82 82 90 Respiratory Rate 22 22 18 Blood Pressure 108/68 Pulse Oximetry 95 93 L 02/24/18 15:14 02/24/18 15:15 02/24/18 16:00 Temperature 97.8 F Pulse Rate 90 93 H Respiratory Rate 18 18 Blood Pressure 116/70 Pulse Oximetry 93 L 94 L Intake & Output 02/23/18 02/24/18 02/24/18 18:59 06:59 18:59 Intake Total 240 / 240 Balance 240 / 240 Weight 114.9 kg Intake: Oral 240 / 240 Other: # Voids 2 Narrative: General: Sitting on edge of bed, no distress, wearing nasal cannula Skin: No rashes or lesions, no cyanosis HEENT: Normocephalic, nasal congestion, normal pharynx Neck: No lymphadenopathy, supple CV: RRR, no murmurs, rubs, gallops. Pedal edema present bilaterally. Lungs: CTAB, prolonged expiratory phase, coughing during exam, sounds congested , no dullness to percussion, no egophonic changes Abdomen: Soft, nontender, nondistended, normal bowel sounds Ext: Pedal edema present Neuro: Awake, alert Psych: Fair insight, appropriate mood/affect Results - Labs CBC & Chem 7: 02/24/18 08:16 02/24/18 08:16 Laboratory Results - last 24 hr 02/23/18 02/24/18 02/24/18 20:49 08:16 08:16 WBC 11.9 H RBC 4.28 L Hgb 12.7 L Hct 39.1 MCV 91.2 MCH 29.6 MCHC 32.5 RDW 14.5 Plt Count 345 MPV 7.5 Neut % (Auto) 58.8 Lymph % (Auto) 27.8 [place] % (Auto) 11.2 H Eos % (Auto) 2.0 Baso % (Auto) 0.2 Neut # (Auto) 7.0 Lymph # (Auto) 3.3 [place] # (Auto) 1.3 H Eos # (Auto) 0.2 Baso # (Auto) 0.0 WBC Differential . Differential Comment Auto diff final Puncture Site Right radial Patient Temperature 98.6 O2 Saturation 93 ABG pH 7.42 ABG pCO2 52 H* ABG pO2 77 ABG HCO3 33 H ABG O2 Content 16.8 ABG Base Excess 8.6 H ABG Methemoglobin 1.2 Ash Test Present Hemoglobin 12.8 Carboxyhemoglobin 1.0 O2 Delivery Device Nasal cannula Liter Flow 2.00 Critical Value Yes Sodium 141 Potassium 3.6 D Chloride 102 Carbon Dioxide 35.2 H Anion Gap 4 L BUN 27 H Creatinine 1.09 Estimated GFR 68 L Random Glucose 82 Calcium 8.9 Microbiology 02/24/18 12:46 Nasal Wash Influenza Types A,B Antigen - Final Negative for FLU A and B antigen Infection due to influenza A or B cannot be ruled out since the antigen present in the sample may be below the detection limit of the test. Assessment and Plan - Plan COPD EXACERBATION RESPIRATORY FAILURE, HYPOXIC AND HYPERCAPNIC ANGELA OBISITY PLAN O2 NEEDED BRONCHODILATOR THERAPY BIPAP THERAPY DIETARY COUNSELING
[2018-02-24] MEDS: Acetaminophen 325 MG Tablet PO PRN (21:58)
[2018-02-25] MEDS: Azithromycin Inj 500 MG in Sodium Chlor 0.9% Inj 250 ML IV.SIG SCH (06:34)
[2018-02-25 07:20] LABS: Baso % (Auto) 0.2 % (0.0-2.0); Eos # (Auto) 0.2 th/mm3 (0.0-0.4); Eos % (Auto) 1.6 % (0.0-4.0); Hematocrit 38.6 % (39.0-51.0); Hemoglobin 12.7 gm/dL (13.0-17.0); Lymph # (Auto) 3.3 th/mm3 (1.0-4.8); Lymph % (Auto) 22.2 % (9.0-44.0); Mean Corpuscular HGB Conc 32.9 % (32.0-36.0); Mean Corpuscular Hemoglobin 30.1 pg (27.0-34.0); Mean Corpuscular Volume 91.6 fL (80.0-100.0); Mean Platelet Volume 7.2 fL (7.0-11.0); Mono # (Auto) 1.4 th/mm3 (0.0-0.9); Mono % (Auto) 9.2 % (0.0-8.0); Neut % (Auto) 66.8 % (16.0-70.0); Platelet Count 348 th/mm3 (150-450); Red Blood Count 4.22 mil/mm3 (4.50-5.90); Red Cell Distribution Width 14.5 % (11.6-17.2); White Blood Count 14.9 th/mm3 (4.0-11.0)
[2018-02-25 07:46] LABS: Calcium 8.5 mg/dL (8.5-10.1); Carbon Dioxide 34.2 meq/L (21.0-32.0); Potassium 3.9 meq/L (3.5-5.1)
[2018-02-25] MEDS: Benzonatate 100 MG Capsule PO PRN ×2 (08:40→14:50)
[2018-02-25] MEDS: Acetaminophen 325 MG Tablet PO PRN ×3 (08:40→22:06)
[2018-02-25] MEDS: Lisinopril 20 MG Tablet PO SCH (08:41)
[2018-02-25] MEDS: hydroCHLOROthiazide 25 MG Tablet PO SCH (08:42)
[2018-02-25] MEDS: predniSONE 20 MG Tablet PO SCH (08:52)
[2018-02-25] MEDS: Heparin - SQ 10,000 UNITS/ML Vial SQ SCH ×2 (08:52→22:00)
--- NOTE | 2018-02-25 12:17 | P.PNFP ---
Subjective Interval history: Since seen yesterday the patient notes some slight improvement in his shortness of breath. He still notes significant shortness of breath with minimal exertion. Today he reports feeling somewhat down due to the persistence of his shortness of breath. He still has a cough but it is minimally productive. No fever or chills are noted. When he receives his nebulizer treatments he notes some improvement in his SOB for 1-2 hours. Results - Labs Result diagrams: 02/25/18 07:03 02/25/18 07:03 Abnormal lab results 02/25/18 02/25/18 Range/Units 07:03 07:03 WBC 14.9 H (4.0-11.0) th/mm3 RBC 4.22 L (4.50-5.90) mil/mm3 Hgb 12.7 L (13.0-17.0) gm/dL Hct 38.6 L (39.0-51.0) % [place] % (Auto) 9.2 H (0.0-8.0) % Neut # (Auto) 10.0 H (1.8-7.7) th/mm3 [place] # (Auto) 1.4 H (0.0-0.9) th/mm3 Carbon Dioxide 34.2 H (21.0-32.0) meq/L BUN 27 H (7-18) mg/dL Estimated GFR 67 L (>89) mL/min Short CBC 02/25/18 Range/Units 07:03 WBC 14.9 H (4.0-11.0) th/mm3 Hgb 12.7 L (13.0-17.0) gm/dL Hct 38.6 L (39.0-51.0) % Plt Count 348 (150-450) th/mm3 [facility] 02/25/18 07:03 Sodium 143 Potassium 3.9 Chloride 103 Carbon Dioxide 34.2 H BUN 27 H Creatinine 1.11 Calcium 8.5 Physical Exam Vital signs: Vital Signs 02/24/18 15:14 02/24/18 15:15 02/24/18 16:00 Temperature 97.8 F Pulse Rate 90 93 H Respiratory Rate 18 18 Blood Pressure 116/70 Pulse Oximetry 93 L 94 L 02/24/18 19:38 02/24/18 20:00 02/25/18 00:00 Temperature 97.6 F 97.8 F Pulse Rate 93 H 74 68 Respiratory Rate 16 18 14 Blood Pressure 110/57 L 112/69 Pulse Oximetry 93 L 97 02/25/18 01:08 02/25/18 03:32 02/25/18 04:35 Temperature 97.8 F Pulse Rate 90 78 88 Respiratory Rate 16 17 16 Blood Pressure 118/64 Pulse Oximetry 93 L 02/25/18 07:41 02/25/18 08:00 Temperature 98.0 F Pulse Rate 82 81 Respiratory Rate 16 20 Blood Pressure 110/78 Pulse Oximetry 95 95 Intake & Output 02/24/18 02/25/18 02/25/18 18:59 06:59 18:59 Intake Total 240 / 240 250 / 250 Balance 240 / 240 250 / 250 Weight 114.5 kg Intake: IV 250 / 250 Azithromycin Inj 500 MG In NS 250 / 250 Inj 250 ML @ 250 mls/hr IV.SIG Q24H MICHAEL Rx#:[id number] Oral 240 / 240 Other: # Voids 3 Date of Last Bowel Movement 02/21/18 Narrative: CONSTITUTIONAL/GEN: normally nourished, in NAD. LUNGS: breath sounds are moderately diminished. Prolonged expiratory phase with minimal wheezing. CARDIOVASCULAR: RR without murmur or gallop. Trace LE edema. GI/ABD: soft without masses, without organomegaly. SKIN: color normal, no rashes noted. PSYCH/MENTAL STATUS: Alert and oriented x 3. Affect somewhat depressed. Assessment and Plan - Assessment (1) Acute exacerbation of chronic obstructive pulmonary disease (COPD) Code(s): J44.1 - Chronic obstructive pulmonary disease with (acute) exacerbation Status: Acute Plan: 62 yo with a PMH of COPD who presents with increased work of breathing and increased mucus production. He is afebrile with a WBC of 14.6 but was on steroids during his previous hospitalization. Patient is on 2L of home O2 and required administration of BiPAP in the ED. He was recently discharged from our service but did not get his medications filled. Chest x-ray: no acute cardiopulmonary disease -Monitor vitals -Azithromycin 500 mg daily -Prednisone 40 mg QDay -Duoneb Q4H MICHAEL -Albuterol Q2H PRN -Titrate O2 to keep sats at 88-93% -Tessalon Perles as needed -Continuous pulse ox - Education/counseling about getting medications filled - repeat CXR 02/23: Minimal bibasilar atelectasis -Pulmonology consulted, appreciate recommendations, patient follows with Dr. Frausto 02/25/18 This patient has moderately severe COPD currently in an acute exacerbation. His baseline status is compromised with chronic oxygen use noted at home. He also has complications from obstructive sleep apnea. He is noting some transient improvement after nebulizer treatments. We will start a long-acting anticholinergic inhaler (Spiriva) today. Will otherwise continue current therapy. This patient does have cardiomegaly noted on his CXR report but his EF on echocardiogram was normal as was a BNP done in the recent past. (2) H. influenzae infection Code(s): A49.2 - Hemophilus influenzae infection, unspecified site Status: Acute Plan: Patient with positive sputum culture growing H influenza from prior hospitalization on 02/19 Patient has been on 250 mg daily of azithromycin. We will increase azithromycin dose to 500mg daily IV starting tomorrow. An additional 250 mg azithromycin was given this morning in order to complete total dose of 500 mg p.o. today. We will transition to IV abx tomorrow (3) Hypertension Code(s): I10 - Essential (primary) hypertension Status: Acute Plan: -Continue home lisinopril and HCTZ -Monitor BP (4) Hyperlipidemia Code(s): E78.5 - Hyperlipidemia, unspecified Status: Acute Plan: Continue home pravastatin (5) Smoker Code(s): F17.200 - Nicotine dependence, unspecified, uncomplicated Status: Acute Plan: Continue daily counseling on smoking, and how it is connected to his pulmonary disease Nicotine patch while in hospital (6) Bacteremia due to Gram-positive bacteria Code(s): R78.81 - Bacteremia Status: Acute Plan: Patient with possible bacteremia due to Corynebacterium based on 04/14 positive blood cultures taken at prior admission 02/19 Discussed results with micro lab and they stated final report should be in later in the afternoon, suspicion for possible contamination VS WNL Follow-up repeat blood culture results (7) Nutrition, metabolism, and development symptoms Code(s): R63.8 - Other symptoms and signs concerning food and fluid intake Status: Acute Plan: Fluids: Not indicated at this time Electrolytes: Replete as needed Diet: Regular adult diet DVT prophylaxis: Heparin SQ twice daily - Assessment and Plan Fluids: by mouth Electrolyte: Will monitor and replace as needed Nutrition: Regular diet DVT prophylaxis: Heparin 5000 units SQ Q12H
[2018-02-25] MEDS: Tiotropium Bromide 18 MCG/ACT Inhaler INH SCH (13:30)
--- NOTE | 2018-02-25 18:01 | P.PN ---
Subjective Interval history: ALERT LESS SOB Physical Exam Vital signs: Vital Signs 02/24/18 19:38 02/24/18 20:00 02/25/18 00:00 Temperature 97.6 F 97.8 F Pulse Rate 93 H 74 68 Respiratory Rate 16 18 14 Blood Pressure 110/57 L 112/69 Pulse Oximetry 93 L 97 02/25/18 01:08 02/25/18 03:32 02/25/18 04:35 Temperature 97.8 F Pulse Rate 90 78 88 Respiratory Rate 16 17 16 Blood Pressure 118/64 Pulse Oximetry 93 L 02/25/18 07:41 02/25/18 08:00 02/25/18 12:00 Temperature 98.0 F 97.9 F Pulse Rate 82 81 62 Respiratory Rate 16 20 20 Blood Pressure 110/78 94/59 L Pulse Oximetry 95 95 96 02/25/18 12:38 02/25/18 15:43 02/25/18 16:00 Temperature 98.2 F Pulse Rate 80 91 H 102 H Respiratory Rate 16 16 20 Blood Pressure 109/64 Pulse Oximetry 94 L Intake & Output 02/24/18 02/25/18 02/25/18 18:59 06:59 18:59 Intake Total 240 / 240 250 / 250 Balance 240 / 240 250 / 250 Weight 114.5 kg Intake: IV 250 / 250 Azithromycin Inj 500 MG In NS 250 / 250 Inj 250 ML @ 250 mls/hr IV.SIG Q24H MICHAEL Rx#:[id number] Oral 240 / 240 Other: # Voids 3 Date of Last Bowel Movement 02/21/18 Narrative: CONSTITUTIONAL/GEN: normally nourished, in NAD. LUNGS: breath sounds are moderately diminished. Prolonged expiratory phase with minimal wheezing. CARDIOVASCULAR: RR without murmur or gallop. Trace LE edema. GI/ABD: soft without masses, without organomegaly. SKIN: color normal, no rashes noted. PSYCH/MENTAL STATUS: Alert and oriented x 3. Affect somewhat depressed. Results - Labs CBC & Chem 7: 02/25/18 07:03 02/25/18 07:03 Laboratory Results - last 24 hr 02/25/18 02/25/18 07:03 07:03 WBC 14.9 H RBC 4.22 L Hgb 12.7 L Hct 38.6 L MCV 91.6 MCH 30.1 MCHC 32.9 RDW 14.5 Plt Count 348 MPV 7.2 Neut % (Auto) 66.8 Lymph % (Auto) 22.2 [place] % (Auto) 9.2 H Eos % (Auto) 1.6 Baso % (Auto) 0.2 Neut # (Auto) 10.0 H Lymph # (Auto) 3.3 [place] # (Auto) 1.4 H Eos # (Auto) 0.2 Baso # (Auto) 0.0 WBC Differential . Differential Comment Auto diff final Sodium 143 Potassium 3.9 Chloride 103 Carbon Dioxide 34.2 H Anion Gap 6 BUN 27 H Creatinine 1.11 Estimated GFR 67 L Random Glucose 85 Calcium 8.5 Microbiology 02/24/18 11:20 Blood - Peripheral Aerobic Blood Culture - Preliminary No growth in 1 day 02/24/18 11:20 Blood - Peripheral Anaerobic Blood Culture - Preliminary No growth in 1 day 02/24/18 11:25 Blood - Peripheral Aerobic Blood Culture - Preliminary No growth in 1 day 02/24/18 11:25 Blood - Peripheral Anaerobic Blood Culture - Preliminary No growth in 1 day 02/24/18 12:46 Nasal Wash Influenza Types A,B Antigen - Final Negative for FLU A and B antigen Infection due to influenza A or B cannot be ruled out since the antigen present in the sample may be below the detection limit of the test. Assessment and Plan - Plan COPD EXACERBATION RESPIRATORY FAILURE, HYPOXIC AND HYPERCAPNIC ANGELA [employer]ISITY PLAN O2 NEEDED BRONCHODILATOR THERAPY BIPAP THERAPY DIETARY COUNSELING
[2018-02-26] MEDS: Azithromycin Inj 500 MG in Sodium Chlor 0.9% Inj 250 ML IV.SIG SCH (06:09)
[2018-02-26] MEDS: Acetaminophen 325 MG Tablet PO PRN ×2 (06:10→20:55)
[2018-02-26] MEDS: Benzonatate 100 MG Capsule PO PRN ×2 (06:10→20:56)
[2018-02-26] MEDS: Lisinopril 20 MG Tablet PO SCH (08:47)
[2018-02-26] MEDS: Heparin - SQ 10,000 UNITS/ML Vial SQ SCH ×2 (08:47→20:54)
[2018-02-26] MEDS: predniSONE 20 MG Tablet PO SCH (08:48)
[2018-02-26] MEDS: hydroCHLOROthiazide 25 MG Tablet PO SCH (08:49)
[2018-02-26] MEDS: Tiotropium Bromide 18 MCG/ACT Inhaler INH SCH (08:55)
[2018-02-26 09:38] LABS: Baso # (Auto) 0.1 th/mm3 (0.0-0.2); Baso % (Auto) 0.5 % (0.0-2.0); Eos # (Auto) 0.4 th/mm3 (0.0-0.4); Eos % (Auto) 2.6 % (0.0-4.0); Hemoglobin 12.6 gm/dL (13.0-17.0); Lymph # (Auto) 4.1 th/mm3 (1.0-4.8); Lymph % (Auto) 25.1 % (9.0-44.0); Mean Corpuscular HGB Conc 32.4 % (32.0-36.0); Mean Corpuscular Hemoglobin 29.6 pg (27.0-34.0); Mean Corpuscular Volume 91.5 fL (80.0-100.0); Mean Platelet Volume 7.2 fL (7.0-11.0); Mono # (Auto) 1.4 th/mm3 (0.0-0.9); Mono % (Auto) 8.5 % (0.0-8.0); Neut # (Auto) 10.2 th/mm3 (1.8-7.7); Neut % (Auto) 63.3 % (16.0-70.0); Platelet Count 363 th/mm3 (150-450); Red Blood Count 4.26 mil/mm3 (4.50-5.90); Red Cell Distribution Width 14.5 % (11.6-17.2); White Blood Count 16.2 th/mm3 (4.0-11.0)
[2018-02-26 10:02] LABS: Calcium 8.7 mg/dL (8.5-10.1); Carbon Dioxide 32.1 meq/L (21.0-32.0); Potassium 3.8 meq/L (3.5-5.1)
[2018-02-26 10:24] LABS: Eosinophils 4 % (0-4); Lymphocytes 25 % (9-44); Metamyelocytes 1 % (0-1); Monocytes 6 % (0-8); Myelocytes 3 % (0-0); Platelet Estimate Normal (Normal); Platelet Morphology Normal (Normal)
[2018-02-26 10:25] LABS: RBC Morphology Normal (Normal)
--- NOTE | 2018-02-26 11:56 | P.PNFP ---
Subjective Interval history: Patient seen and examined at bedside this morning. No acute events overnight. Patient reports that shortness of breath is improving. He is currently on 2 L of nasal cannula breathing comfortably. Reports he is not 100% back to his baseline. He is able to walk a little more without significant shortness of breath. However he still concerned requiring more oxygen when ambulating. Denies any chest pain, palpitations, dizziness, fever, chills, nausea, vomiting, abdominal pain, lower extremity swelling. Patient would like to go home soon. <Anastasiia Villavicencio D - 02/26/18 13:21> Results - Labs Result diagrams: 02/27/18 08:55 02/27/18 08:55 <Oleg Avina R - 02/28/18 11:26> Abnormal lab results 02/26/18 02/26/18 Range/Units 09:15 09:15 WBC 16.2 H (4.0-11.0) th/mm3 RBC 4.26 L (4.50-5.90) mil/mm3 Hgb 12.6 L (13.0-17.0) gm/dL [place] % (Auto) 8.5 H (0.0-8.0) % Neut # (Auto) 10.2 H (1.8-7.7) th/mm3 [place] # (Auto) 1.4 H (0.0-0.9) th/mm3 Band Neuts % (Manual) 9 H (0-6) % Myelocytes % (Man) 3 H (0-0) % Abs Neuts (Manual) 10.5 H (1.8-7.7) th/mm3 Carbon Dioxide 32.1 H (21.0-32.0) meq/L BUN 27 H (7-18) mg/dL Estimated GFR 62 L (>89) mL/min Short CBC 02/26/18 Range/Units 09:15 WBC 16.2 H (4.0-11.0) th/mm3 Hgb 12.6 L (13.0-17.0) gm/dL Hct 39.0 (39.0-51.0) % Plt Count 363 (150-450) th/mm3 BMP 02/26/18 09:15 Sodium 140 Potassium 3.8 Chloride 101 Carbon Dioxide 32.1 H BUN 27 H Creatinine 1.18 Calcium 8.7 <SaudAnastasiia D - 02/26/18 11:56> Physical Exam Vital signs: Intake & Output 02/27/18 02/28/18 02/28/18 18:59 06:59 18:59 Intake Total 250 / 250 Balance 250 / 250 Intake: IV 250 / 250 Azithromycin Inj 500 MG In NS 250 / 250 Inj 250 ML @ 250 mls/hr IV.SIG Q24H MICHAEL Rx#:[id number] Other: Date of Last Bowel Movement 02/25/18 <Oleg Avina R - 02/28/18 11:26> Vital Signs 02/25/18 12:00 02/25/18 12:38 02/25/18 15:43 Temperature 97.9 F Pulse Rate 62 80 91 H Respiratory Rate 20 16 16 Blood Pressure 94/59 L Pulse Oximetry 96 02/25/18 16:00 02/25/18 20:00 02/25/18 20:18 Temperature 98.2 F 98.0 F Pulse Rate 102 H 72 87 Respiratory Rate 20 20 16 Blood Pressure 109/64 107/66 Pulse Oximetry 94 L 93 L 93 L 02/26/18 00:00 02/26/18 03:51 02/26/18 04:00 Temperature 97.9 F 97.4 F L Pulse Rate 77 89 91 H Respiratory Rate 18 16 18 Blood Pressure 113/56 L 96/53 L Pulse Oximetry 98 96 02/26/18 08:00 Temperature 98.2 F Pulse Rate 84 Respiratory Rate 20 Blood Pressure 102/56 L Pulse Oximetry 95 Intake & Output 02/25/18 02/26/18 02/26/18 18:59 06:59 18:59 Intake Total 250 / 250 480 / 480 250 / 250 Output Total 200 / 200 Balance 250 / 250 280 / 280 250 / 250 Weight 114.7 kg Intake: IV 250 / 250 250 / 250 Azithromycin Inj 500 MG In NS 250 / 250 250 / 250 Inj 250 ML @ 250 mls/hr IV.SIG Q24H MICHAEL Rx#:[id number] Oral 480 / 480 Output: Urine 200 / 200 Other: # Voids 5 Date of Last Bowel Movement 02/21/18 02/21/18 # Bowel Movements 1 <Calzado,Anastasiia D - 02/26/18 11:56> Narrative: CONSTITUTIONAL/GEN: normally nourished, in NAD. LUNGS: breath sounds are moderately diminished. CARDIOVASCULAR: RR without murmur or gallop. GI/ABD: soft without masses, without organomegaly. SKIN: color normal, no rashes noted. Remedies: No lower extremity edema, nontender calves, well perfused bilaterally PSYCH/MENTAL STATUS: Alert and oriented x 3. <Eleazar Villavicencioly D - 02/26/18 13:21> Assessment and Plan - Assessment (1) Acute exacerbation of chronic obstructive pulmonary disease (COPD) Code(s): J44.1 - Chronic obstructive pulmonary disease with (acute) exacerbation Status: Acute (2) H. influenzae infection Code(s): A49.2 - Hemophilus influenzae infection, unspecified site Status: Acute (3) Hypertension Code(s): I10 - Essential (primary) hypertension Status: Acute (4) Hyperlipidemia Code(s): E78.5 - Hyperlipidemia, unspecified Status: Acute (5) Smoker Code(s): F17.200 - Nicotine dependence, unspecified, uncomplicated Status: Acute (6) Bacteremia due to Gram-positive bacteria Code(s): R78.81 - Bacteremia Status: Resolved (7) Nutrition, metabolism, and development symptoms Code(s): R63.8 - Other symptoms and signs concerning food and fluid intake Status: Acute <Oleg Avina - 02/28/18 11:26> (1) Acute exacerbation of chronic obstructive pulmonary disease (COPD) Code(s): J44.1 - Chronic obstructive pulmonary disease with (acute) exacerbation Status: Acute Plan: 62 yo with a PMH of COPD who presented with increased work of breathing and increased mucus production. He was afebrile with a WBC of 14.6 but was on steroids during his previous hospitalization. Patient is on 2L of home O2 and required administration of BiPAP in the ED. He was recently discharged from our service but did not get his medications filled. Chest x-ray: no acute cardiopulmonary disease sob improving -Monitor vitals -Azithromycin 500 mg daily -Prednisone 40 mg QDay -Duoneb Q4H MICHAEL -Albuterol Q2H PRN -spiriva daily -Titrate O2 to keep sats at 88-93% -Tessalon Perles as needed -Continuous pulse ox - Education/counseling about getting medications filled - repeat CXR 02/23: Minimal bibasilar atelectasis -Pulmonology consulted, appreciate recommendations, patient follows with Dr. Frausto Follow-up: Walk test Physical therapy recommendations (2) H. influenzae infection Code(s): A49.2 - Hemophilus influenzae infection, unspecified site Status: Acute Plan: Patient with positive sputum culture growing H influenza from prior hospitalization on 02/19 Continue with azithromycin 500mg daily IV Patient negative for influenza (3) Hypertension Code(s): I10 - Essential (primary) hypertension Status: Acute Plan: -Continue home lisinopril and HCTZ -Monitor BP (4) Hyperlipidemia Code(s): E78.5 - Hyperlipidemia, unspecified Status: Acute Plan: Continue home pravastatin (5) Smoker Code(s): F17.200 - Nicotine dependence, unspecified, uncomplicated Status: Acute Plan: Continue daily counseling on smoking, and how it is connected to his pulmonary disease Nicotine patch while in hospital (6) Bacteremia due to Gram-positive bacteria Code(s): R78.81 - Bacteremia Status: Resolved Plan: Patient with possible bacteremia due to Corynebacterium based on 04/14 positive blood cultures taken at prior admission 02/19 Discussed results with micro lab and they stated final report should be in later in the afternoon, suspicion for possible contamination VS WNL repeat blood culture: Negative times 2 days (7) Nutrition, metabolism, and development symptoms Code(s): R63.8 - Other symptoms and signs concerning food and fluid intake Status: Acute Plan: Fluids: Not indicated at this time Electrolytes: Replete as needed Diet: Regular adult diet DVT prophylaxis: Heparin SQ twice daily <Anastasiia Villavicencio D - 02/26/18 13:11> - Assessment and Plan Fluids: by mouth Electrolyte: Will monitor and replace as needed Nutrition: Regular diet DVT prophylaxis: Heparin 5000 units SQ Q12H <Anastasiia Villavicencio - 02/26/18 11:56> - Attending Attestation This patient was seen and examined. The assessment and plan was discussed with the resident physician and I am in agreement with continued medical care as documented in this encounter. OLEG AVINA MD <Oleg Avina - 02/28/18 11:26>
--- NOTE | 2018-02-26 14:16 | P.PN ---
Subjective Interval history: ALERT SITTING BEDSIDE NO SWOB Physical Exam Vital signs: Vital Signs 02/25/18 15:43 02/25/18 16:00 02/25/18 20:00 Temperature 98.2 F 98.0 F Pulse Rate 91 H 102 H 72 Respiratory Rate 16 20 20 Blood Pressure 109/64 107/66 Pulse Oximetry 94 L 93 L 02/25/18 20:18 02/26/18 00:00 02/26/18 03:51 Temperature 97.9 F Pulse Rate 87 77 89 Respiratory Rate 16 18 16 Blood Pressure 113/56 L Pulse Oximetry 93 L 98 02/26/18 04:00 02/26/18 08:00 02/26/18 12:00 Temperature 97.4 F L 98.2 F 98.5 F Pulse Rate 91 H 84 88 Respiratory Rate 18 20 19 Blood Pressure 96/53 L 102/56 L 116/58 L Pulse Oximetry 96 95 93 L Intake & Output 02/25/18 02/26/18 02/26/18 18:59 06:59 18:59 Intake Total 250 / 250 480 / 480 250 / 250 Output Total 200 / 200 Balance 250 / 250 280 / 280 250 / 250 Weight 114.7 kg Intake: IV 250 / 250 250 / 250 Azithromycin Inj 500 MG In NS 250 / 250 250 / 250 Inj 250 ML @ 250 mls/hr IV.SIG Q24H MICHAEL Rx#:[id number] Oral 480 / 480 Output: Urine 200 / 200 Other: # Voids 5 Date of Last Bowel Movement 02/21/18 02/21/18 # Bowel Movements 1 Narrative: CONSTITUTIONAL/GEN: normally nourished, in NAD. LUNGS: breath sounds are moderately diminished. CARDIOVASCULAR: RR without murmur or gallop. GI/ABD: soft without masses, without organomegaly. SKIN: color normal, no rashes noted. Remedies: No lower extremity edema, nontender calves, well perfused bilaterally PSYCH/MENTAL STATUS: Alert and oriented x 3. Results - Labs CBC & Chem 7: 02/26/18 09:15 02/26/18 09:15 Laboratory Results - last 24 hr 02/26/18 02/26/18 09:15 09:15 WBC 16.2 H RBC 4.26 L Hgb 12.6 L Hct 39.0 MCV 91.5 MCH 29.6 MCHC 32.4 RDW 14.5 Plt Count 363 MPV 7.2 Prelim Diff (Auto) Slide review pending Neut % (Auto) 63.3 Lymph % (Auto) 25.1 [place] % (Auto) 8.5 H Eos % (Auto) 2.6 Baso % (Auto) 0.5 Neut # (Auto) 10.2 H Lymph # (Auto) 4.1 [place] # (Auto) 1.4 H Eos # (Auto) 0.4 Baso # (Auto) 0.1 WBC Differential Manual diff final Seg Neuts % (Manual) 52 Band Neuts % (Manual) 9 H Lymphocytes % (Manual) 25 Monocytes % (Manual) 6 Eosinophils % (Manual) 4 Metamyelocytes % (Man) 1 Myelocytes % (Man) 3 H Abs Neuts (Manual) 10.5 H Differential Comment . Platelet Estimate Normal Platelet Morphology Normal RBC Morphology Normal Sodium 140 Potassium 3.8 Chloride 101 Carbon Dioxide 32.1 H Anion Gap 7 BUN 27 H Creatinine 1.18 Estimated GFR 62 L Random Glucose 86 Calcium 8.7 Microbiology 02/24/18 11:20 Blood - Peripheral Aerobic Blood Culture - Preliminary No growth in 2 days 02/24/18 11:20 Blood - Peripheral Anaerobic Blood Culture - Preliminary No growth in 2 days 02/24/18 11:25 Blood - Peripheral Aerobic Blood Culture - Preliminary No growth in 2 days 02/24/18 11:25 Blood - Peripheral Anaerobic Blood Culture - Preliminary No growth in 2 days Assessment and Plan - Plan COPD EXACERBATION RESPIRATORY FAILURE, HYPOXIC AND HYPERCAPNIC ANGELA OBISITY PLAN O2 NEEDED BRONCHODILATOR THERAPY BIPAP THERAPY DIETARY COUNSELING
[2018-02-27] MEDS: Azithromycin Inj 500 MG in Sodium Chlor 0.9% Inj 250 ML IV.SIG SCH (06:04)
[2018-02-27 06:19] LABS: Baso % (Auto) 0.2 % (0.0-2.0); Eos # (Auto) 0.2 th/mm3 (0.0-0.4); Eos % (Auto) 1.1 % (0.0-4.0); Hematocrit 37.8 % (39.0-51.0); Hemoglobin 12.6 gm/dL (13.0-17.0); Lymph # (Auto) 4.1 th/mm3 (1.0-4.8); Lymph % (Auto) 20.8 % (9.0-44.0); Mean Corpuscular HGB Conc 33.4 % (32.0-36.0); Mean Corpuscular Hemoglobin 29.9 pg (27.0-34.0); Mean Corpuscular Volume 89.6 fL (80.0-100.0); Mean Platelet Volume 7.1 fL (7.0-11.0); Mono # (Auto) 1.6 th/mm3 (0.0-0.9); Mono % (Auto) 7.9 % (0.0-8.0); Neut # (Auto) 13.9 th/mm3 (1.8-7.7); Platelet Count 385 th/mm3 (150-450); Red Blood Count 4.22 mil/mm3 (4.50-5.90); Red Cell Distribution Width 14.7 % (11.6-17.2); White Blood Count 19.8 th/mm3 (4.0-11.0)
[2018-02-27] MEDS: Acetaminophen 325 MG Tablet PO PRN (07:42)
[2018-02-27] MEDS: predniSONE 20 MG Tablet PO SCH (08:20)
[2018-02-27] MEDS: hydroCHLOROthiazide 25 MG Tablet PO SCH (08:20)
[2018-02-27] MEDS: Lisinopril 20 MG Tablet PO SCH (08:20)
[2018-02-27] MEDS: Heparin - SQ 10,000 UNITS/ML Vial SQ SCH (08:21)
[2018-02-27 09:02] VITALS: BP 98/72; PULSE 79; TEMP 97.9; O2SAT 94
[2018-02-27 09:28] VITALS: RESP 16
[2018-02-27] MEDS: Tiotropium Bromide 18 MCG/ACT Inhaler INH SCH (09:28)
[2018-02-27 09:58] LABS: Carbon Dioxide 35.1 meq/L (21.0-32.0)
--- NOTE | 2018-02-27 10:07 | P.PNFP ---
Addendum entered and electronically signed by Mary Kate Figueroa MD, R1 02/27/18 11:52: Physical exam: CONSTITUTIONAL/GEN: normally nourished, in NAD. LUNGS: breath sounds are moderately diminished. Currently stat 96% 2 L NC CARDIOVASCULAR: RR without murmur or gallop. GI/ABD: soft without masses, without organomegaly. SKIN: color normal, no rashes noted. Remedies: No lower extremity edema, nontender calves, well perfused bilaterally PSYCH/MENTAL STATUS: Alert and oriented x 3. Original Note: Subjective Interval history: No acute events overnight. Patient feels like shortness of breath is improving. He was able to move around the room and go to the bathroom with oxygen. Patient stated that he wants to not require oxygen. Medical team explained that he had required oxygen at home and will continue to need oxygen at discharge. Medical team also confirmed that patient has home unit and portable unit that are supplying continuous oxygen. Discussed with patient need to continue breathing treatments at home using nebulizer that will be ordered at discharge as well as continue the antibiotics and steroids. Patient voiced understanding. Medical team also discussed seeing his primary care doctor either tomorrow or by the end of this week in order to follow-up on patient's progress and medications. Medical team went to case management to confirm patient can get nebulizer through his insurance that will be delivered to his home. <Mary Kate Figueroa - 02/27/18 11:17> Results - Labs Result diagrams: 02/27/18 08:55 02/27/18 08:55 <Oleg Avina - 02/28/18 11:31> Abnormal lab results 02/26/18 02/27/18 02/27/18 Range/Units 09:15 05:30 08:55 WBC 19.8 H (4.0-11.0) th/mm3 RBC 4.22 L (4.50-5.90) mil/mm3 Hgb 12.6 L (13.0-17.0) gm/dL Hct 37.8 L (39.0-51.0) % Neut # (Auto) 13.9 H (1.8-7.7) th/mm3 [place] # (Auto) 1.6 H (0.0-0.9) th/mm3 Band Neuts % (Manual) 9 H (0-6) % Myelocytes % (Man) 3 H (0-0) % Abs Neuts (Manual) 10.5 H (1.8-7.7) th/mm3 Carbon Dioxide 35.1 H (21.0-32.0) meq/L Anion Gap 4 L (5-15) meq/L BUN 25 H (7-18) mg/dL Estimated GFR 66 L (>89) mL/min Short CBC 02/27/18 Range/Units 05:30 WBC 19.8 H (4.0-11.0) th/mm3 Hgb 12.6 L (13.0-17.0) gm/dL Hct 37.8 L (39.0-51.0) % Plt Count 385 (150-450) th/mm3 BMP 02/27/18 08:55 Sodium 140 Potassium 4.0 Chloride 101 Carbon Dioxide 35.1 H BUN 25 H Creatinine 1.13 Calcium 9.0 <Mary Kate Figueroa C - 02/27/18 10:07> Physical Exam Vital signs: Intake & Output 02/27/18 02/28/18 02/28/18 18:59 06:59 18:59 Intake Total 250 / 250 Balance 250 / 250 Intake: IV 250 / 250 Azithromycin Inj 500 MG In NS 250 / 250 Inj 250 ML @ 250 mls/hr IV.SIG Q24H [facility] Rx#:[id number] Other: Date of Last Bowel Movement 02/25/18 <Oleg Avina R - 02/28/18 11:31> Vital Signs 02/26/18 11:35 02/26/18 12:00 02/26/18 15:48 Temperature 98.5 F Pulse Rate 88 105 H Respiratory Rate 19 17 Blood Pressure 116/58 L Pulse Oximetry 93 L Pulse Oximetry [Resting on Room Air] 87 L Pulse Oximetry [Resting with Oxygen] 92 L 02/26/18 16:00 02/26/18 20:00 02/26/18 21:30 Temperature 97.3 F L 98.1 F Pulse Rate 75 85 63 Respiratory Rate 18 20 20 Blood Pressure 112/64 106/72 Pulse Oximetry 94 L 93 L 92 L Pulse Oximetry [Resting on Room Air] Pulse Oximetry [Resting with Oxygen] 02/27/18 00:00 02/27/18 01:04 02/27/18 04:00 Temperature 97.8 F 97.3 F L Pulse Rate 98 H 92 H 86 Respiratory Rate 20 20 20 Blood Pressure 109/67 103/62 Pulse Oximetry 95 96 Pulse Oximetry [Resting on Room Air] Pulse Oximetry [Resting with Oxygen] 02/27/18 07:57 02/27/18 08:00 02/27/18 09:28 Temperature 97.9 F Pulse Rate 67 79 Respiratory Rate 16 20 16 Blood Pressure 98/72 L Pulse Oximetry 95 94 L Pulse Oximetry [Resting on Room Air] Pulse Oximetry [Resting with Oxygen] Intake & Output 02/26/18 02/27/18 02/27/18 18:59 06:59 18:59 Intake Total 250 / 250 250 / 250 Balance 250 / 250 250 / 250 Weight 116 kg Intake: IV 250 / 250 250 / 250 Azithromycin Inj 500 MG In NS 250 / 250 250 / 250 Inj 250 ML @ 250 mls/hr IV.SIG Q24H [facility] Rx#:[id number] Other: Date of Last Bowel Movement 02/21/18 02/25/18 02/25/18 <Mary Kate Figueroa - 02/27/18 10:07> Assessment and Plan - Assessment (1) Acute exacerbation of chronic obstructive pulmonary disease (COPD) Code(s): J44.1 - Chronic obstructive pulmonary disease with (acute) exacerbation Status: Acute (2) H. influenzae infection Code(s): A49.2 - Hemophilus influenzae infection, unspecified site Status: Acute (3) Hypertension Code(s): I10 - Essential (primary) hypertension Status: Acute (4) Hyperlipidemia Code(s): E78.5 - Hyperlipidemia, unspecified Status: Acute (5) Smoker Code(s): F17.200 - Nicotine dependence, unspecified, uncomplicated Status: Acute (6) Bacteremia due to Gram-positive bacteria Code(s): R78.81 - Bacteremia Status: Resolved (7) Nutrition, metabolism, and development symptoms Code(s): R63.8 - Other symptoms and signs concerning food and fluid intake Status: Acute <Oleg Avina - 02/28/18 11:31> (1) Acute exacerbation of chronic obstructive pulmonary disease (COPD) Code(s): J44.1 - Chronic obstructive pulmonary disease with (acute) exacerbation Status: Acute Plan: 62 yo with a PMH of COPD who presented with increased work of breathing and increased mucus production. He was afebrile with a WBC of 14.6 but was on steroids during his previous hospitalization. Patient is on 2L of home O2 and required administration of BiPAP in the ED. He was recently discharged from our service but did not get his medications filled. Chest x-ray: no acute cardiopulmonary disease sob improving -Monitor vitals -Azithromycin 500 mg daily -Prednisone 40 mg QDay -Duoneb Q4H MICHAEL -Albuterol Q2H PRN -spiriva daily -Titrate O2 to keep sats at 88-93% -Tessalon Perles as needed -Continuous pulse ox - Education/counseling about getting medications filled - repeat CXR 02/23: Minimal bibasilar atelectasis -Pulmonology consulted, appreciate recommendations, patient follows with Dr. Frausto -walk test: requires home oxygen. Confirmed with patient he has continuous oxygen available at home as well as portable unit -Patient discharged with 2 days of azithromycin. Discharged with albuterol as needed and DuoNeb scheduled as well as as needed. Discharge with Spiriva. Discharged with nebulizer machine. Discharged with prednisone 20 mg for 2 days and then 10 mg for 3 days. (2) H. influenzae infection Code(s): A49.2 - Hemophilus influenzae infection, unspecified site Status: Acute Plan: Patient with positive sputum culture growing H influenza from prior hospitalization on 02/19 Continue with azithromycin 500mg daily Patient negative for influenza (3) Hypertension Code(s): I10 - Essential (primary) hypertension Status: Acute Plan: -Continue home lisinopril and HCTZ -Monitor BP (4) Hyperlipidemia Code(s): E78.5 - Hyperlipidemia, unspecified Status: Acute Plan: Continue home pravastatin (5) Smoker Code(s): F17.200 - Nicotine dependence, unspecified, uncomplicated Status: Acute Plan: Continue daily counseling on smoking, and how it is connected to his pulmonary disease Nicotine patch while in hospital (6) Bacteremia due to Gram-positive bacteria Code(s): R78.81 - Bacteremia Status: Resolved Plan: Patient with possible bacteremia due to Corynebacterium based on 1/ positive blood cultures taken at prior admission 02/19 Discussed results with micro lab and they stated final report should be in later in the afternoon, suspicion for possible contamination VS WNL repeat blood culture: Negative times 2 days (7) Nutrition, metabolism, and development symptoms Code(s): R63.8 - Other symptoms and signs concerning food and fluid intake Status: Acute Plan: Fluids: Not indicated at this time Electrolytes: Replete as needed Diet: Regular adult diet DVT prophylaxis: Heparin SQ twice daily <Mary Kate Figueroa - 02/27/18 11:10> - Assessment and Plan Fluids: by mouth Electrolyte: Will monitor and replace as needed Nutrition: Regular diet DVT prophylaxis: Heparin 5000 units SQ Q12H <Mary Kate Figueroa - 02/27/18 10:07> - Attending Attestation The assessment and plan was discussed with the resident physician and I am in agreement with continued medical care as documented in this encounter. OLEG AVINA MD <Oleg Avina - 02/28/18 11:31>
[2018-02-27 10:31] LABS: Baso # (Auto) 0.1 th/mm3 (0.0-0.2); Baso % (Auto) 0.3 % (0.0-2.0); Eos # (Auto) 0.3 th/mm3 (0.0-0.4); Eos % (Auto) 1.6 % (0.0-4.0); Hematocrit 37.7 % (39.0-51.0); Hemoglobin 12.6 gm/dL (13.0-17.0); Lymph # (Auto) 4.7 th/mm3 (1.0-4.8); Lymph % (Auto) 23.9 % (9.0-44.0); Mean Corpuscular HGB Conc 33.4 % (32.0-36.0); Mean Corpuscular Hemoglobin 30.4 pg (27.0-34.0); Mean Corpuscular Volume 90.9 fL (80.0-100.0); Mean Platelet Volume 7.4 fL (7.0-11.0); Mono # (Auto) 1.7 th/mm3 (0.0-0.9); Mono % (Auto) 8.5 % (0.0-8.0); Neut # (Auto) 12.9 th/mm3 (1.8-7.7); Neut % (Auto) 65.7 % (16.0-70.0); Platelet Count 374 th/mm3 (150-450); Red Blood Count 4.15 mil/mm3 (4.50-5.90); Red Cell Distribution Width 14.6 % (11.6-17.2); White Blood Count 19.6 th/mm3 (4.0-11.0)
[2018-02-27 11:14] LABS: Lymphocytes 24 % (9-44); Monocytes 7 % (0-8); Myelocytes 1 % (0-0); Platelet Estimate Normal (Normal); Platelet Morphology Normal (Normal); RBC Morphology Normal (Normal)
--- NOTE | 2018-02-27 11:56 | P.DS ---
Date of admission: 02/21/18 23:24 Primary care physician: Breezy Avalos MD, R2 Brief History from admission: 62-year-old male who was discharged 2 days ago after being hospitalized for a COPD exacerbation returns to the hospital with a chief complaint of dyspnea. Patient reports that since discharge he was unable to fill his medications. He reports that he has had increased mucus production and cough with increased work of breathing. The cough is so frequent that he has not slept since he was discharged from the hospital and feels exhausted. The patient reports some relief of his shortness of breath after using his friend's nebulizer machine earlier this afternoon. He is still smoking half a pack per day. He denies chest pain, fever, chills, abdominal pain, dysuria, headache. PMH: COPD Obesity Hyperlipidemia Hypertension PSH: Umbilical hernia repair Appendectomy as a child FamilyHx: father: lung cancer mother: alcohol abuse SocialHx: tobacco: Half a pack per day but previously smoked up to 3 packs/day for 20 years alcohol: seldom illicit drug: denies DS: Diagnosis - Discharge Diagnosis (1) Acute exacerbation of chronic obstructive pulmonary disease (COPD) Status: Acute (2) H. influenzae infection Status: Acute (3) Hypertension Status: Acute (4) Hyperlipidemia Status: Acute (5) Smoker Status: Acute (6) Bacteremia due to Gram-positive bacteria Status: Resolved (7) Nutrition, metabolism, and development symptoms Status: Acute DS: Medications - Discharge Medications Prescriptions: albuterol sulfate 2.5 mg NEB Q2HR NEB PRN 30 Days ml PRN Reason: Shortness Of Breath albuterol sulfate [Ventolin HFA] 2 puff INHALATION Q6H PRN #1 unit PRN Reason: Shortness Of Breath azithromycin 500 mg PO DAILY 2 Days #2 tab fluticasone-salmeterol [Advair Diskus] 1 puff INHALATION BID 30 Days each ipratropium-albuterol 3 ml INHALATION QID 30 Days ml nebulizers #1 each prednisone See Label Instructions .ROUTE .COMPLEX #7 tab tiotropium bromide [Spiriva with HandiHaler] 18 mcg INH DAILY 30 Days #30 inh DS: Summary Hospital Course: 62 yo with a PMH of COPD who presented with increased work of breathing and increased mucus production. He was afebrile with a WBC of 14.6 but was on steroids during his previous hospitalization. Patient is on 2L of home O2 and required administration of BiPAP in the ED. He was recently discharged from our service but did not get his medications filled. Chest x-ray: no acute cardiopulmonary disease. Patient with positive sputum culture growing H influenza from prior hospitalization on 02/19. Influenza negative. SOB improved over stay. Patient was continued on azithromycin 500 mg (started initially on 02/19 admission), prednisone 40 mg daily, scheduled duoneb and spiriva with PRN albuterol. Repeat CXR 02/23: Minimal bibasilar atelectasis. During stay , Dr. Frausto was consulted. Did not have any additional suggestions for current treatment. Of note, Patient with possible bacteremia due to Corynebacterium based on 04/14 positive blood cultures taken at prior admission 02/19 Discussed results with micro lab and they stated final report should be in later in the afternoon, suspicion for possible contamination. Repeat blood culture repeat blood culture: Negative times 3 days On discharge patient was instructed to make up follow up appointment with PCP in 2-[address] Frausto in 1 week. Based on walk test, patient requires home oxygen. Confirmed with patient he has continuous oxygen available at home as well as portable unit. Patient discharged with 2 days of azithromycin. Discharged with albuterol as needed and DuoNeb scheduled as well as as needed. Discharge with Spiriva. Discharged with nebulizer machine. Discharged with prednisone 20 mg for 2 days and then 10 mg for 3 days. - Time Spent with Patient Total time spent providing and/or coordinating discharge services: Greater than 30 minutes - Quality: VTE Deep Vein Thrombosis/Pulmonary Embolism Present on Admission: No Exam Vital signs: Vital Signs 02/26/18 12:00 02/26/18 15:48 02/26/18 16:00 Temperature 98.5 F 97.3 F L Pulse Rate 88 105 H 75 Respiratory Rate 19 17 18 Blood Pressure 116/58 L 112/64 Pulse Oximetry 93 L 94 L 02/26/18 20:00 02/26/18 21:30 02/27/18 00:00 Temperature 98.1 F 97.8 F Pulse Rate 85 63 98 H Respiratory Rate 20 20 20 Blood Pressure 106/72 109/67 Pulse Oximetry 93 L 92 L 95 02/27/18 01:04 02/27/18 04:00 02/27/18 07:57 Temperature 97.3 F L Pulse Rate 92 H 86 67 Respiratory Rate 20 20 16 Blood Pressure 103/62 Pulse Oximetry 96 95 02/27/18 08:00 02/27/18 09:28 Temperature 97.9 F Pulse Rate 79 Respiratory Rate 20 16 Blood Pressure 98/72 L Pulse Oximetry 94 L Intake & Output 02/26/18 02/27/18 02/27/18 18:59 06:59 18:59 Intake Total 250 / 250 250 / 250 Balance 250 / 250 250 / 250 Weight 116 kg Intake: IV 250 / 250 250 / 250 Azithromycin Inj 500 MG In NS 250 / 250 250 / 250 Inj 250 ML @ 250 mls/hr IV.SIG Q24H [facility] Rx#:[id number] Other: Date of Last Bowel Movement 02/21/18 02/25/18 02/25/18 Narrative: CONSTITUTIONAL/GEN: normally nourished, in NAD. LUNGS: breath sounds are moderately diminished. Currently stat 96% 2 L NC CARDIOVASCULAR: RR without murmur or gallop. GI/ABD: soft without masses, without organomegaly. SKIN: color normal, no rashes noted. Remedies: No lower extremity edema, nontender calves, well perfused bilaterally PSYCH/MENTAL STATUS: Alert and oriented x 3. Results Procedures completed during hospitalization: none Labs on day of discharge: Labs from last 24 hours 02/27/18 02/27/18 02/27/18 08:55 08:55 05:30 WBC 19.6 H 19.8 H RBC 4.15 L 4.22 L Hgb 12.6 L 12.6 L Hct 37.7 L 37.8 L MCV 90.9 89.6 MCH 30.4 29.9 MCHC 33.4 33.4 RDW 14.6 14.7 Plt Count 374 385 MPV 7.4 7.1 Prelim Diff (Auto) Slide review pending Neut % (Auto) 65.7 70.0 Lymph % (Auto) 23.9 20.8 [place] % (Auto) 8.5 H 7.9 Eos % (Auto) 1.6 1.1 Baso % (Auto) 0.3 0.2 Neut # (Auto) 12.9 H 13.9 H Lymph # (Auto) 4.7 4.1 [place] # (Auto) 1.7 H 1.6 H Eos # (Auto) 0.3 0.2 Baso # (Auto) 0.1 0.0 WBC Differential Manual diff final . Seg Neuts % (Manual) 62 Band Neuts % (Manual) 6 Lymphocytes % (Manual) 24 Monocytes % (Manual) 7 Myelocytes % (Man) 1 H Abs Neuts (Manual) 13.5 H Differential Comment . Auto diff final Platelet Estimate Normal Platelet Morphology Normal RBC Morphology Normal Sodium 140 Potassium 4.0 Chloride 101 Carbon Dioxide 35.1 H Anion Gap 4 L BUN 25 H Creatinine 1.13 Estimated GFR 66 L Random Glucose 86 Calcium 9.0 Preliminary micro results at discharge 02/24/18 11:20 Aerobic Blood Culture - Preliminary Blood - Peripheral No growth in 3 days Anaerobic Blood Culture - Preliminary No growth in 3 days 02/24/18 11:25 Aerobic Blood Culture - Preliminary Blood - Peripheral No growth in 3 days Anaerobic Blood Culture - Preliminary No growth in 3 days - Impressions ITS Impressions Chest X-Ray 02/23/18 00:00 CONCLUSION: 1. Minimal bibasilar atelectasis. 2. Cardiomegaly. 3. Degenerative changes throughout the thoracic spine. Discharge Plan - Discharge Disposition Patient Disposition: 01 Discharge Home - Discharge Condition Condition: Stable - Discharge Order Discharge Orders: Discharge Order (Routine); Ordered 02/27/18 Ordered By: Mary Kate Figueroa - Discharge Details Discharge Comment: Follow up with PCP in 2-3 days - Physicians Team Primary Care Provider: Breezy Avalos Attending Provider: Jose Bolton Other Providers: Lisbet Frausto MD
== END 2018-02-27 12:06 | disposition home or self-care (01) ==
LOC: NEPC 21:26 → NEDA 23:24 → INTOOBSV 23:24 → OBSVTOIN 02-22 01:00 → NEPGCP 02-22 04:00 → N04 02-23 15:53
PROVIDERS: ADMIT Family Medicine; ATTEND Family Medicine